=== PATIENT | female | born 1955 | race Caucasian/White ===

== ENCOUNTER 2017-10-12 13:56 | Outpatient (CLI) | payer MEDICARE | END 2017-10-12 13:57 | disposition home or self-care (01) | LOC: BICMAMMO 13:56 | PROVIDERS: ATTEND Internal Medicine Rheumatology | DX: M81.0 Age-related osteoporosis without current pathological fracture (principal) | CPT/HCPCS: 77080 ==

== ENCOUNTER 2018-01-27 10:31 | Outpatient (CLI) | payer MEDICARE ==
--- NOTE | 2018-02-03 12:10 | MMO ---
BILATERAL DIGITAL SCREENING MAMMOGRAMS: HISTORY: This 62-year-old female presents for digital screening mammography. COMPARISON: 02/01/13, 01/10/16. This patient's mammogram is interpreted with the assistance of computer-aided detection. FINDINGS: Scattered areas of fibroglandular density are noted bilaterally. There are typically benign calcific ations. No direct or indirect evidence of malignancy. IMPRESSION: BI-RADS category 2, benign findings. Continued routine screening. BIRADS 2: Benign Finding(s) Routine annual screening mammography (for women over age 40) POS: [facility]
== END 2018-01-27 10:32 | disposition home or self-care (01) ==
LOC: SCSMAMMO 10:31
PROVIDERS: ATTEND Physician Assistant
DX: Z12.31 Encounter for screening mammogram for malignant neoplasm of breast (principal)
CPT/HCPCS: 77067

== ENCOUNTER 2018-07-12 13:26 | Outpatient (CLI) | payer MEDICARE ==
--- NOTE | 2018-07-12 15:57 | MRI ---
BRAIN MRI WITH AND WITHOUT CONTRAST: 07/12/18 HISTORY: Parkinson's disease, normal pressure hydrocephalus, trauma, pain. TECHNIQUE: Multiplanar and multisequence MR imaging of the brain is obtained with and without contrast. FINDINGS: The axial gradient echo imaging demonstrates no evidence for intracranial hemorrhage. There is an are a of artifact limiting detailed assessment in the posterior temporoparietal region on the right. The diffusion weighted imaging demonstrates no evidence for acute infarction. The imaged paranasal sinuses and mastoid air cells are well aerated. Arterial flow voids at the axial level of the skull base appear unremarkable on the T2 weighted imaging. Regional bone marrow signal intensity within normal limits. No midline shift, mass effect or ventricu lar enlargement. There are a few patchy areas of increased T2 and FLAIR signal within the abimael which may signify small vessel disease. The postcontrast imaging demonstrates no abnormal enhancement within the brain paren chyma. IMPRESSION: No acute findings. POS: [facility]
== END 2018-07-12 13:27 | disposition home or self-care (01) ==
LOC: SCSMRI 13:26
PROVIDERS: ATTEND Psychiatry & Neurology Neurology with Special Qualifications in Child Neurology
DX: G20 Parkinson's disease (principal); R29.3 Abnormal posture; R32 Unspecified urinary incontinence
CPT/HCPCS: 70553; 82565

== ENCOUNTER 2018-09-27 14:43 | Outpatient (CLI) | payer MEDICARE ==
--- NOTE | 2018-09-27 15:47 | RAD ---
TWO VIEWS LUMBAR SPINE: HISTORY: Rheumatoid arthritis. Back pain. FINDINGS: There are 5 lumbar-type vertebral bodies. There is a likely acute mild compression fracture at L1. There is mild loss of the superior margin of the L3 vertebral body. Indeterminate compression deform ity is suspected. Probably vacuum disk phenomenon at the lumbosacral articulation. Indeterminate compression deformity at th eT11 level. IMPRESSION: Multiple compression deformities at T11, L1, and L3. Further evaluation with MRI or CT is recommende d. POS: [facility]
--- NOTE | 2018-09-27 16:12 | BD ---
DEXA BONE MINERAL DENSITOMETRY STUDY: 09/27/2018 HISTORY: Osteoporosis. Postmenopausal. FINDINGS LUMBAR SPINE BMD (g/cm2) T-SCORE Z-SCORE L1 0.971 -0.2 1.1 L2 0.71 -2.9 -1.4 L3 0.753 -3.0 -1.5 L4 0.685 -3.4 -1.8 L1-L4 0.777 -2.5 -1.0 LEFT FEMORAL NECK 0.523 -2.9 -1.6 TOTAL FEMUR 0.606 -2.8 -1.7 Prior study at [facility], on 10/12/2017, indicated bone mineral density of the lumbar spine, fr om L1 to L4, of 0.674 g per cm2, corresponding to a young adult T-score of -3.4, with bone mineral de nsity of the left femoral neck of 0.398 g per cm2, corresponding to a young adult T-score of -4.1. T here has been an interval decrease in bone mineral density compared to the prior exam. IMPRESSION: 1. Moderate osteopenia of the lumbar spine and left femoral neck, indicating a four-fold increased r isk for fracture. 2. This patient meets the WHO criteria for osteoporosis. POS: [facility]
== END 2018-09-27 14:44 | disposition home or self-care (01) ==
LOC: BICMAMMO 14:43
PROVIDERS: ATTEND Internal Medicine
DX: M81.0 Age-related osteoporosis without current pathological fracture (principal); M54.5 Low back pain; M06.9 Rheumatoid arthritis, unspecified; M43.8X4 Other specified deforming dorsopathies, thoracic region; M43.8X6 Other specified deforming dorsopathies, lumbar region; M85.89 Other specified disorders of bone density and structure, multiple sites
CPT/HCPCS: 72100; 77080

== ENCOUNTER 2018-10-20 13:27 | Outpatient (CLI) | payer MEDICARE ==
--- NOTE | 2018-10-20 16:53 | MRI ---
PELVIS MRI WITHOUT IV CONTRAST: 10/20/18 HISTORY: Sacral insufficiency fracture, M84.48XA - multiple falls since June. There is some heterogeneous signal involving the sacrum, coccyx and pelvis but no evidence for an ins ufficiency type stress fracture. There is one nodular focus measuring 0.8 cm in the left S1 vertebral body which is increased on T2 and STIR and decreased on T1, possibly an atypical hemangioma which I would favor over a metastatic focus although these cannot be definitively . No other bone le sions are demonstrated. No evidence of abnormal marrow signal. No evidence for soft tissue pelvic mas s or abnormal fluid collection. IMPRESSION: 0.8 cm diameter T1 hypointense, T2 and STIR hyperintense focus in the left S1 vertebral body, nonspec ific, this could certainly represent an atypical hemangioma. The possibility of a focal metastasis ca nnot be totally excluded but thought to be less likely. No evidence for insufficiency or stress type fractures of the sacrum, coccyx or pelvis. POS: [facility]
--- NOTE | 2018-10-20 17:01 | MRI ---
LUMBAR SPINE MRI WITHOUT IV CONTRAST 10/20/18 HISTORY: S32.000A - wedge compression fracture of the lumbar vertebral body. Multiple falls since June. FINDINGS: Multiplanar and multisequence MRI examination of the lumbar spine is performed. There is mild old com pression of T11 without abnormal marrow signal. No significant retropulsion. The L1 vertebral body s hows greater than 50% vertical height loss with some irregular T1 and T2 signal suggesting the possib ility of some acute on chronic change. There is moderate retropulsion superiorly with some resultant narrowing of the ventral thecal sac, although the thecal sac is very patulous at this level. There do es not appear to be any significant cord compression. There is some subtle T1 hypointensity and minim al STIR hyperintensity involving the posterior elements of L1 without a definitive acute fracture, bu t this may well represent some stress related changes. There are generalized disc desiccation changes and ligament and facet hypertrophic changes throughout the remainder of the lumbar spine. No evidenc e for significant focal disc herniation or canal or foraminal stenosis at L2-L3 or L3-L4. At L4-L5, t here is some mild disc bulging but again no canal or lateral recess or foraminal stenosis. At L5-S1, there is some disc bulging with mild left foraminal stenosis. IMPRESSION: Old mild compression of T11. More marked probably greater than 50% vertical height loss of the L1 betsy tebral body with some heterogeneous mixed T1 and T2 and STIR signal possibly representing some acute on chronic change with some superior retropulsion and some ventral thecal sac indention but no eviden ce of significant cord compression given the patulous size of the thecal sac. In addition, there is s ome minimal STIR hyperintensity involving the pedicles and posterior elements of L1 bilaterally witho ut a definitive defined fracture line possibly related to some stress related changes. Other findings as above. POS: [facility]
== END 2018-10-20 13:28 | disposition home or self-care (01) ==
LOC: SCSMRI 13:27
PROVIDERS: ATTEND Specialist
DX: M84.48XA Pathological fracture, other site, initial encounter for fracture (principal); S32.000A Wedge compression fracture of unspecified lumbar vertebra, initial encounter for closed fracture; D18.09 Hemangioma of other sites
CPT/HCPCS: 72148; 72195

== ENCOUNTER 2018-11-03 13:38 | Outpatient (CLI) | payer MEDICARE ==
--- NOTE | 2018-11-03 14:26 | RAD ---
LEFT HIP RADIOGRAPHS TWO VIEWS: Date: 11-03-18 Provided Clinical History: Left hip pain. FINDINGS: There is no evidence for fracture or other acute osseous abnormality. Alignment appears anatomic. Lef t hip joint space appears preserved. IMPRESSION: No evidence for an acute osseous abnormality or significant arthropathy involving the left hip. POS: [facility]
--- NOTE | 2018-11-03 15:46 | RAD ---
PELVIC RADIOGRAPH: 11/03/2018 PROVIDED CLINICAL HISTORY: Hip pain. FINDINGS: There is no evidence for fracture or other acute osseous abnormality. Alignment appears anatomic. J oint spaces appear preserved. No lytic or blastic lesions are seen. IMPRESSION: No evidence for an acute osseous abnormality or significant arthropathy. POS: [facility]
== END 2018-11-03 13:39 | disposition home or self-care (01) ==
LOC: RAD 13:38
PROVIDERS: ATTEND Nurse Practitioner Family
DX: M25.552 Pain in left hip (principal)
CPT/HCPCS: 72170

== ENCOUNTER 2019-10-17 14:17 | Outpatient (CLI) | payer MEDICARE ==
--- NOTE | 2019-10-17 15:24 | BD ---
DEXA bone density examination HISTORY: 64-year-old postmenopausal female for screening COMPARISON: None FINDINGS: L1--bone mineral density 0.797 g/sq cm; T score -1.8 L2--bone mineral density 0.762 g/sq cm; T score -2.4 L3--bone mineral density 0.775 g/sq cm; T score -2.8 L4--bone mineral density 0.695 g/sq cm; T score -3.3 Total L1-L4--bone mineral density 0.757 g/sq cm; T score -2.6 Left femoral neck--bone mineral density0.51 g/sq cm; T score -3.1 Total proximal left femur--bone mineral density 0.603 g/sq cm ; T score -2.8 There has been interval decrease in bone mineral density of the lumbar spine by 2.6% and decrease in bone mineral density of the left femoral neck by 0.5% when compared to prior study on 09/27/2018. IMPRESSION: 1. Marked osteopenia left femoral neck indicating 8 fold increased risk for fracture. 2. Moderate osteopenia lumbar spine indicating 4 fold increased risk for fracture.
== END 2019-10-17 14:18 | disposition home or self-care (01) ==
LOC: BICMAMMO 14:17
PROVIDERS: ATTEND Physician Assistant
DX: M81.0 Age-related osteoporosis without current pathological fracture (principal); M85.89 Other specified disorders of bone density and structure, multiple sites; Z79.899 Other long term (current) drug therapy
CPT/HCPCS: 77080

== ENCOUNTER 2020-05-13 20:37 | Inpatient (IN) | payer MEDICARE, OTHER ==
[2020-05-13 21:02] LABS: Base Excess-Venous 0.8 mmol/L (-2.0 to 3.0); Bicarbonate (HCO3v) 26.2 mmol/L (22.0-28.0); CO2 Tension (PvCO2) 44.2 mmHg (40.0-50.0); Chloride 107 mmol/L (98-107); Hemoglobin - Calc 10.5 g/dL (12.0-16.0); Potassium 3.3 mmol/L (3.5-5.1); Sodium 145 mmol/L (138-145); T. Carbon Dioxide 27.5 mmol/L (22.0-28.0)
[2020-05-13 21:10] LABS: #Lymphocytes 1.4 thou/uL (1.20-3.40); #Neutrophils 12.4 thou/uL (1.40-6.50); %Basophils 0.1 % (0.0-1.0); %Eosinophils 0.3 % (0.0-10.0); %Lymphocytes 9.6 % (21.0-51.0); %Monocytes 6.5 % (0.0-10.0); %Neutrophils 83.6 % (42.0-75.0); Hemoglobin 9.1 g/dL (12.0-16.0); Mean Corpuscular HGB CONC 31.9 g/dL (32.0-36.0); Mean Corpuscular Hemoglobin 29.2 pg (27.0-31.0); Mean Corpuscular Volume 91.4 fL (78.0-98.0); Mean Platelet Volume 8.5 fL (7.4-10.4); Platelet Count 260 thou/uL (130-400); RBC Distribution Width 12.8 % (11.5-14.5); Red Blood Cell (RBC) Count 3.12 mill/uL (4.20-5.40); White Blood Cell (WBC) Count 14.9 thou/uL (4.8-10.8)
[2020-05-13] MEDS ORDERED: Ondansetron PF 4 MG/2 ML Vial IVP PRN (23:18)
[2020-05-13] MEDS ORDERED: Ondansetron ODT 4 MG TAB SL PRN (23:18)
[2020-05-13] MEDS ORDERED: Acetaminophen 325 MG TAB PO PRN (23:19)
[2020-05-13] MEDS ORDERED: HYDROcodone/Acetaminophen 5/325 mg Tablet PO PRN (23:19)
[2020-05-13] MEDS ORDERED: Acetaminophen 650 MG Suppository PR PRN (23:19)
[2020-05-13 23:43] VITALS: BMI 17.9
--- NOTE | 2020-05-13 23:55 | PDOC.HHP ---
Hospitalist HPI - History of Present Illness dark stools History of Present Illness: Case of an 64y/o female with a pmhx of rheumatoid arthritis and advance parkinsons disease who comes to hospital due to dark stools and coffe ground hemesis. patient refers she was on her usual state of health until yesterday when she had some melena and coffe ground emesis. the patient was transferred from the [place] ER for GI bleed, elevated troponin, mild anemia. The patient reports she has been vomiting since yesterday with associated abdominal pain. The patient reports she has a history of chronic nausea and vomiting and normally vomits a few times per week but yesterday she started with coffe ground color which prompt her to get medical assistance. Patient denies any fever, body aches, chills, chest pain, shortness of breath, diarrhea, hematochezia, or other acute process. Hospitalist ROS - Review of Systems All other systems reviewed; all pertinent +/- noted in HPI/Subj Hospitalist History - Past Surgical History Past Surgical History: reports: Appendectomy, Cholecystectomy, Hysterectomy - Family History Family History: reports: cardiac disorder - Social History Smoking Status: Never smoker Alcohol: reports: None Drugs: reports: none - Exam General Appearance: NAD, awake alert General - other findings: frail appearing Eye: PERRL, anicteric sclera ENT: normocephalic atraumatic, no oropharyngeal lesions Neck: supple, symmetric, no JVD, no thyromegaly Heart: RRR, no murmur, no gallops, no rubs Respiratory: CTAB, no wheezes, no rales Gastrointestinal: soft, non-tender, non-distended, normal bowel sounds Extremities: no cyanosis, no clubbing, no edema Skin: normal turgor, no lesions, no rashes Neurological: cranial nerve grossly intact, normal sensation to touch, no focal deficits Musculoskeletal: normal tone, normal strength, no muscle wasting Psychiatric: normal affect, normal behavior, A&O x 3 Hospitalist Results - Labs Result Diagrams: 05/13/20 20:59 Lab results: WBC 14.9 thou/uL (4.8-10.8) H 05/13/20 20:59 Hgb 9.1 g/dL (12.0-16.0) L 05/13/20 20:59 Hct 28.5 % (36.0-47.0) L 05/13/20 20:59 MCV 91.4 fL (78.0-98.0) 05/13/20 20:59 Plt Count 260 thou/uL (130-400) 05/13/20 20:59 Neutrophils % 83.6 % (42.0-75.0) H 05/13/20 20:59 VBG pCO2 44.2 mmHg (40.0-50.0) 05/13/20 21:03 VBG pO2 34.0 mmHg (35.0-45.0) L 05/13/20 21:03 Hospitalist H&P A/P - Problem (1) GI bleeding Code(s): K92.2 - GASTROINTESTINAL HEMORRHAGE, UNSPECIFIED Status: Acute (2) Parkinson disease Code(s): G20 - PARKINSON'S DISEASE Status: Acute (3) Rheumatoid arthritis Code(s): M06.9 - RHEUMATOID ARTHRITIS, UNSPECIFIED Status: Acute - Plan Plan: 64y/o female with the stated pmhx who presents with gi bleeding gi bleed - npo - hg at 9.2 from 11.3, constance check q 4hrs - transfuse if below 7 or rapid decline - gi consult - npo - protonix drip - occult blood + rheumatoid arthritis / parkinson disease - continue home meds when able to tolare po
[2020-05-14] MEDS: Pantoprazole 80 MG, Admixture Fee 1 EACH in Sodium Chloride 0.9% 100 ML IVPB SCH ×2 (00:31→09:38)
[2020-05-14] MEDS: Sodium Chloride 0.9% 1,000 ML IV SCH ×2 (00:31→19:47)
[2020-05-14 01:15] LABS: Hemoglobin 9.4 g/dL (12.0-16.0)
[2020-05-14 02:21] LABS: Bilirubin Negative (Negative); Blood, Urine Negative (Negative); Clarity Clear (Clear); Glucose, Urine (Dipstick) Normal (Negative); Ketone, Urine Trace mg/dL (Negative); Leukocyte 75 Leu/uL (Negative); Nitrite Negative (Negative); Protein, Urine (Dipstick) 10 mg/dL (Neg-Trace); RBC/HPF 0-3 HPF (0-3); Specific Gravity, Urine 1.025 (1.002-1.036); Squamous Epithelial 0-3 HPF (0-3)
[2020-05-14 02:26] LABS: Bacteria/HPF Rare-Few HPF (None Seen)
[2020-05-14 06:01] LABS: Hemoglobin 8.6 g/dL (12.0-16.0)
[2020-05-14 06:24] LABS: ALT (SGPT) Less than 7 U/L (8-55); AST (SGOT) 12 U/L (5-34); Albumin 2.9 g/dL (3.4-4.8); Alkaline Phosphatase 56 U/L (40-110); Anion Gap 9 mmol/L (10-20); BUN (Urea Nitrogen) 29 mg/dL (9.8-20.1); Bilirubin, Total 0.5 mg/dL (0.2-1.2); Calc. Creatinine Clearance 74 mL/min (70-130); Carbon Dioxide 24 mmol/L (23-31); Chloride 112 mmol/L (98-107); Estimated GFR-MDRD Greater than 90; Globulin 1.8 g/dL (2.4-3.5); Glucose 81 mg/dL (80-115); Protein, Total 4.7 g/dL (6.0-8.3); Sodium 142 mmol/L (136-145)
[2020-05-14 09:04] LABS: Hemoglobin 8.8 g/dL (12.0-16.0)
--- NOTE | 2020-05-14 11:18 | CON ---
DATE OF CONSULTATION: 05/14/2020 REASON FOR CONSULTATION: Hematemesis, melena. CONSULTING PROVIDER: Armando Ramirez MD. HISTORY OF PRESENT ILLNESS: The patient is a 64-year-old female with past medical history of rheumatoid arthritis, advanced Parkinson disease, chronic nausea and vomiting, and chronic anemia, presenting with complaints of hematemesis and melena. She states that approximately 1 month ago she had the acute onset of hematemesis, characterized as coffee-ground type emesis, that she considered a small amount with no recurrence and decided not to seek healthcare assistance. However, she did not have any recurrence until yesterday afternoon when she had multiple episodes (approximately 2) of coffee-ground emesis, that was associated with dark black semi-solid stools x2 with the appearance of both black emesis and black stools, that then prompted her to seek healthcare assistance at the [facility] ER. While in the ER, she was noted to have a decreased hemoglobin and hematocrit when compared to baseline in addition to an elevated BUN to creatinine ratio, and was ultimately admitted to the hospital for further evaluation. Since she has been admitted to the hospital, she has not had any further episodes of vomiting nor has she had any further episodes of melenic type stools. Upon further talking with the patient, she states that she has had chronic nausea and vomiting that has been present for years and usually occurs at least once every day or once every other day. It will usually occur within 2 hours after eating and usually consisted primarily of the ingested food. She does try to maintain an upright posture for at least 1 to 2 hours after she eats, but after that does go lay down for prolonged periods of time during the day. She does endorse associated regurgitation, acid taste in her mouth, midepigastric pain that only occurs during vomiting and resolves completely after vomiting as well as normally having constipation. Otherwise, she denies any substernal pyrosis/heartburn, fevers, chills, hematochezia, dysphagia, or odynophagia. Of note, the patient did undergo colonoscopy on 02/12/2018 with removal of a 4-mm ascending colon tubular adenoma and mild diverticulosis, but no other abnormality seen. REVIEW OF SYSTEMS: A 10-category review of systems was obtained with all responses negative except for the pertinent positives as listed in HPI. PAST MEDICAL HISTORY: As per HPI. PAST SURGICAL HISTORY: 1. Appendectomy. 2. Cholecystectomy. 3. Hysterectomy. FAMILY HISTORY: Denies any GI malignancies. SOCIAL HISTORY: Denies any tobacco, alcohol, or illicit drug use. OUTPATIENT MEDICATIONS: Reviewed. ALLERGIES: SULFA. PHYSICAL EXAMINATION: VITAL SIGNS: Temperature 97.8, pulse 84, blood pressure 95/54, respiratory rate 18, and saturating 96% on room air. GENERAL: The patient was lying in bed, in no acute distress. Alert and oriented x4, although somewhat somnolent and hard to wake up initially. HEENT: Normocephalic and atraumatic. NECK: Supple. No JVD or scleral icterus noted. CARDIOVASCULAR: Regular rate and rhythm. A 3/6 systolic murmur was best heard at the right upper sternal border, but no other murmurs, gallops, or rubs. RESPIRATORY: Clear to auscultation bilaterally. ABDOMEN: Normoactive bowel sounds. Soft, nontender, and nondistended. EXTREMITIES: No cyanosis, clubbing, or edema. LABORATORY DATA: CBC with a white blood cell count of 14.9, hemoglobin 8.6, hematocrit 28.5, and platelets 260. Chemistry with a sodium of 142, potassium 3, chloride 112, CO2 of 24, BUN 29, creatinine 0.61, and glucose 81. AST 12, ALT less than 7, alkaline phosphatase 56, total bilirubin 0.5, and albumin 2.9. Urinalysis consistent with urinary tract infection. IMAGING DATA: No current GI imaging is available for review. ASSESSMENT AND PLAN: The patient is a 64-year-old female with past medical history of rheumatoid arthritis, chronic nausea and vomiting, and advanced Parkinson disease, presenting with complaints of hematemesis and melena, concerning for an upper gastrointestinal bleed. Upper GI bleeding: The patient is presenting with a longstanding history of chronic nausea and vomiting that she has had for years and characterized as having approximately one episode of emesis every day or every other day. However, approximately 1 month ago, she had occurrence of a small amount of hematemesis, characterized as coffee-ground emesis at that time. The amount was small, so she did not seek healthcare assistance. However, yesterday, the patient had 2 episodes of coffee-ground emesis as well as what appears to be melenic type stools, concerning for upper gastrointestinal bleeding. When looking at her hemoglobin and hematocrit, it is decreased when compared to baseline and she is also presenting with an elevated BUN to creatinine ratio, also concerning for an upper gastrointestinal bleed. At this time, the etiology is unknown, but the differential could include gastroesophageal reflux disease, especially given her sedentary type states and lying supine for majority of the day, medication induced (especially with prednisone, SSRI, and carbidopa/levodopa on board), Yael-Reno tear given her chronic history of nausea and vomiting, arteriovenous malformation, Dieulafoy lesion, gastritis, duodenitis, peptic ulcer disease, and/or gastrointestinal neoplasm (less likely). RECOMMENDATIONS: 1. Would continue to trend her hemoglobin and hematocrit and transfuse as necessary to maintain the hemoglobin and hematocrit of 7/21. 2. Continue to monitor clinically for signs of active GI bleeding. 3. Would continue to avoid any anticoagulation for the time being until upper endoscopy. 4. Continue the patient on PPI drip until upper endoscopy. 5. Would avoid any NSAIDs or pain control. 6. Would continue n.p.o. status again in anticipation of upper endoscopy. 7. We will plan for upper endoscopy later today with further recommendations to follow. Job ID: [id number]
[2020-05-14] MEDS ORDERED: PHENYLEPHRINE-NS 100 MCG/ML 10 ML SYRINGE ONE (11:37)
[2020-05-14] MEDS ORDERED: PROPOFOL 200 MG/20 ML VIAL ONE (11:37)
[2020-05-14] MEDS ORDERED: Lidocaine 1% PF 5 ML VIAL ONE (11:37)
[2020-05-14 12:02] LABS: SARS-CoV-2 MS2 Positive; SARS-CoV-2 N Gene Negative; SARS-CoV-2 S Gene Negative; SARS-CoV-2 by NAA Not Detected (NotDetected); SARS-CoV-2 orf1ab Negative
[2020-05-14] MEDS ORDERED: Promethazine HCl 25 MG/ML VIAL IM PRN (15:18)
[2020-05-14] MEDS ORDERED: Promethazine HCl 25 MG/ML VIAL SLOW IVP PRN (15:18)
[2020-05-14] MEDS ORDERED: Ondansetron HCl/PF 4 MG/2 ML Vial IVP PRN (15:18)
--- NOTE | 2020-05-14 17:34 | PDOC.HOSPP ---
- Subjective Subjective: pt was seen and examined. GI plans for upper endoscopy this PM. no further bleeding noted per nursing staff. Hb stable - Objective Vital Signs & Weight: Vital Signs (12 hours) Temp Pulse Resp BP Pulse Ox 05/14/20 11:48 97.9 F 92 18 106/58 L 93 L 05/14/20 08:00 96 Weight Admit Weight 107 lb 12.8 oz Weight 107 lb 12.897 oz I&O: 05/13/20 05/14/20 05/15/20 06:59 06:59 06:59 Intake Total 400 Output Total 500 Balance -100 Result Diagrams: 05/14/20 08:39 05/14/20 05:37 Hospitalist ROS - Medication Medications: Active Medications Generic Name Dose Route Start Last Admin Trade Name Freq PRN Reason Stop Dose Admin Sodium Chloride 1,000 mls @ 50 mls/hr 05/13/20 23:30 05/14/20 00:31 Normal Saline 0.9% IV 1,000 mls .Q20H RAINA Administration Hosp A/P - Plan - Exam General Appearance: NAD, awake alert General - other findings: frail appearing Eye: PERRL, anicteric sclera ENT: normocephalic atraumatic, no oropharyngeal lesions Neck: supple, symmetric, no JVD, no thyromegaly Heart: RRR, no murmur, no gallops, no rubs Respiratory: CTAB, no wheezes, no rales Gastrointestinal: soft, non-tender, non-distended, normal bowel sounds Extremities: no cyanosis, no clubbing, no edema Skin: normal turgor, no lesions, no rashes Neurological: cranial nerve grossly intact, normal sensation to touch, no focal deficits Musculoskeletal: normal tone, normal strength, no muscle wasting Psychiatric: normal affect, normal behavior, A&O x 3 Assessment and Plan: #Upper GI bleeding #Chronic Anemia with superimposed acute blood anemia #RA #Advanced Parkinson's dementia 05/14/20 Cont supportive cares. Cont PPI. Appreciate GI input Hb stable, low threshold for blood transfusion at this time. Avoid NSAIDs Rpt labs in AM
[2020-05-14] MEDS: Pantoprazole 40 MG VIAL IVP SCH (19:45)
--- NOTE | 2020-05-14 22:34 | OP ---
DATE OF PROCEDURE: 05/14/2020 PROCEDURE PERFORMED: EGD (diagnostic). INDICATION FOR PROCEDURE: Hematemesis and anemia. DESCRIPTION OF PROCEDURE: After the risks and benefits of the procedure were explained to the patient including risks of bleeding, infection, perforation, reactions to anesthesia, aspiration, and/or pain, informed consent was obtained. The patient was then taken to the endoscopy suite, where she was maneuvered into the left lateral decubitus position, followed by introduction of deep sedation via propofol and anesthesia support. Once the patient was adequately sedated, the standard gastroscope was introduced into the mouth with intubation of the esophagus, stomach, and the proximal small intestines with the findings listed below. The patient tolerated the procedure well with no immediate perioperative complications. Upon conclusion of the procedure, all equipment was removed from the patient and she was transferred to PACU in satisfactory condition. FINDINGS: Esophagus: Normal-appearing mucosa was seen in the proximal, mid, and distal esophagus; however, at the gastroesophageal junction, there was [id number] narrowing of the esophageal lumen, but it was easily traversed with the standard gastroscope. Also at the gastroesophageal junction, there were multiple erosions as well as ulcerations with mild oozing of blood in this particular region extending greater than 5 mm in length and in some areas confluent with adjacent esophageal folds, but occupying approximately 50% of the esophageal lumen. Along the one wall of the distal esophagus, there was a larger ulceration that measured approximately 4 to 5 mm in size that did exhibit oozing of blood, but did not have any high-risk stigmata of bleeding associated with it. The diaphragmatic pinch was seen at 38 cm while the gastroesophageal junction was well seen at 31 cm denoting a 7 to 8 cm hiatal hernia. There was no evidence of mass lesions in this region. Stomach: Normal-appearing mucosa was seen in the gastric cardia, fundus, body, greater curvature, antrum, and incisura. On gastric retroflexion, a very large hiatal hernia was seen without any evidence of Milad's erosions/ulcerations. There was no evidence of erosions, ulcerations, mass, lesions, or active/recent bleeding. Duodenum: Normal-appearing mucosa was seen in the duodenal bulb and second portion of the duodenum. There was no evidence of erosions, ulcerations, mass, lesions, or active/recent bleeding. IMPRESSION: 1. LA grade B/C reflux-mediated erosive esophagitis (most likely source of the patient's recent hematemesis). 2. 7 to 8 cm hiatal hernia (likely contributing to LA grade B/C reflux mediated erosive esophagitis). 3. [id number]-xf-[id number] narrowing/stricture of the distal esophagus that was not dilated today due to already oozing of blood in this region and no complaints of dysphagia on interview. RECOMMENDATIONS: 1. We would place the patient on pantoprazole 40 mg IV b.i.d. with discontinuation of the IV infusion, would plan to discharge the patient on pantoprazole 40 mg oral twice daily until seen in the GI clinic. 2. If the patient is going to be on medications that can induce GI bleeding (Lialda, escitalopram, and prednisone). The patient will need to be on a PPI daily for gastric protective purposes. 3. We would continue to trend the patient's H and H and transfuse as necessary to maintain an H and H of 07/21. 4. Continue to monitor clinically for signs of active GI bleeding. 5. We would adhere to strict anti-reflux precautions while the patient is in the hospital (for example, maintaining an upright posture throughout the greater portion of the day, maintaining an upright posture after meals and within 2 to 3 hours of bedtime, avoidance of trigger foods). 6. We would consider consultation of General Surgery for evaluation and correction of the large hiatal hernia likely contributing to her esophageal reflux/erosive esophagitis. 7. We would have the patient follow up in the GI Clinic in 3 weeks for further management of this condition. 8. We will sign off at this time. Please call with any questions. Job ID: [id number]
[2020-05-15 05:21] LABS: #Eosinphils 0.1 thou/uL (0.0-0.7); #Lymphocytes 1.3 thou/uL (1.20-3.40); #Monocytes 0.8 thou/uL (0.11-0.59); #Neutrophils 7.4 thou/uL (1.40-6.50); %Basophils 0.5 % (0.0-1.0); %Lymphocytes 13.6 % (21.0-51.0); Hemoglobin 8.9 g/dL (12.0-16.0); Mean Corpuscular HGB CONC 31.4 g/dL (32.0-36.0); Mean Corpuscular Hemoglobin 28.4 pg (27.0-31.0); Mean Corpuscular Volume 90.5 fL (78.0-98.0); Mean Platelet Volume 8.1 fL (7.4-10.4); Platelet Count 255 thou/uL (130-400); RBC Distribution Width 12.5 % (11.5-14.5); Red Blood Cell (RBC) Count 3.13 mill/uL (4.20-5.40); White Blood Cell (WBC) Count 9.6 thou/uL (4.8-10.8)
[2020-05-15 05:40] LABS: Anion Gap 13 mmol/L (10-20); BUN (Urea Nitrogen) 15 mg/dL (9.8-20.1); Calc. Creatinine Clearance 85 mL/min (70-130); Calcium 7.2 mg/dL (7.8-10.44); Carbon Dioxide 20 mmol/L (23-31); Chloride 113 mmol/L (98-107); Estimated GFR-MDRD Greater than 90; Glucose 67 mg/dL (80-115); Sodium 143 mmol/L (136-145)
[2020-05-15] MEDS ORDERED: Potassium Chloride 20 MEQ TAB PO SCH (08:00)
[2020-05-15] MEDS: Pantoprazole 40 MG VIAL IVP SCH (09:25)
[2020-05-15] MEDS ORDERED: Chloraseptic Spray 180 ml Bottle PO PRN (11:45)
[2020-05-15] MEDS: Sodium Chloride 0.9% 1,000 ML IV SCH (15:32)
--- NOTE | 2020-05-15 16:24 | PDOC.HOSPP ---
- Subjective Subjective: no further bleeding noted. tolerating full liquid diet. - Objective Vital Signs & Weight: Vital Signs (12 hours) Temp Pulse Resp BP Pulse Ox 05/15/20 12:29 98.6 F 88 18 124/69 95 05/15/20 09:05 98.7 F 95 18 128/68 96 Weight Admit Weight 107 lb 12.8 oz Weight 107 lb 12.897 oz I&O: 05/14/20 05/15/20 05/16/20 06:59 06:59 06:59 Intake Total 400 1850 Output Total 500 1300 Balance -100 550 Result Diagrams: 05/15/20 05:04 05/15/20 05:04 Hospitalist ROS - Medication Medications: Active Medications Generic Name Dose Route Start Last Admin Trade Name Freq PRN Reason Stop Dose Admin Acetaminophen 650 mg 05/13/20 23:19 05/15/20 09:24 Tylenol PO 650 mg Q4H PRN Administration Headache/Fever/Mild Pain (1-3) Sodium Chloride 1,000 mls @ 50 mls/hr 05/13/20 23:30 05/15/20 15:32 Normal Saline 0.9% IV 1,000 mls .Q20H RAINA Administration [Rytary Er] 61.25- 2 capsule 05/15/20 13:00 05/15/20 16:12 245 PO 2 capsule QID RAINA Administration [Rytary Er] 36.25- 1 capsule 05/15/20 13:00 05/15/20 16:12 145 Mg Cap PO 1 capsule QID RAINA Administration Phenol 0 ml 05/15/20 11:45 05/15/20 16:12 Chloraseptic Crawford 180 Ml Bot PO 1 spray Q1H PRN Administration SORE THROAT Hosp A/P - Plan - Exam General Appearance: NAD, awake alert General - other findings: frail appearing Eye: PERRL, anicteric sclera ENT: normocephalic atraumatic, no oropharyngeal lesions Neck: supple, symmetric, no JVD, no thyromegaly Heart: RRR, no murmur, no gallops, no rubs Respiratory: CTAB, no wheezes, no rales Gastrointestinal: soft, non-tender, non-distended, normal bowel sounds Extremities: no cyanosis, no clubbing, no edema Skin: normal turgor, no lesions, no rashes Neurological: cranial nerve grossly intact, normal sensation to touch, no focal deficits Musculoskeletal: normal tone, normal strength, no muscle wasting Psychiatric: normal affect, normal behavior, A&O x 3 Assessment and Plan: #Upper GI bleeding - secondary to erosive esophagitis #Chronic Anemia with superimposed acute blood anemia #RA #Advanced Parkinson's disease #Large HH 05/15/20 Hb stable. she is tolerating Full liquid diet. no further bleeding noted. I have updated her daughter, Verito on the phone GI is following. Rpt CBC in AM. transition to oral PPI 05/14/20 Cont supportive cares. Cont PPI. Appreciate GI input Hb stable, low threshold for blood transfusion at this time. Avoid NSAIDs Rpt labs in AM
[2020-05-15] MEDS: Amantadine HCl 100 mg Capsule PO SCH (20:48)
[2020-05-16 06:28] LABS: #Eosinphils 0.1 thou/uL (0.0-0.7); #Lymphocytes 1.1 thou/uL (1.20-3.40); #Monocytes 0.6 thou/uL (0.11-0.59); #Neutrophils 6.3 thou/uL (1.40-6.50); %Basophils 0.3 % (0.0-1.0); %Eosinophils 1.5 % (0.0-10.0); %Monocytes 6.7 % (0.0-10.0); %Neutrophils 77.5 % (42.0-75.0); Hemoglobin 9.2 g/dL (12.0-16.0); Mean Corpuscular HGB CONC 32.2 g/dL (32.0-36.0); Mean Corpuscular Hemoglobin 29.2 pg (27.0-31.0); Mean Corpuscular Volume 90.5 fL (78.0-98.0); Mean Platelet Volume 8.6 fL (7.4-10.4); Platelet Count 243 thou/uL (130-400); RBC Distribution Width 12.7 % (11.5-14.5); Red Blood Cell (RBC) Count 3.15 mill/uL (4.20-5.40); White Blood Cell (WBC) Count 8.2 thou/uL (4.8-10.8)
[2020-05-16 06:56] LABS: Anion Gap 11 mmol/L (10-20); BUN (Urea Nitrogen) 7 mg/dL (9.8-20.1); Calc. Creatinine Clearance 80 mL/min (70-130); Calcium 7.3 mg/dL (7.8-10.44); Carbon Dioxide 22 mmol/L (23-31); Chloride 113 mmol/L (98-107); Estimated GFR-MDRD Greater than 90; Glucose 81 mg/dL (80-115); Potassium 3.5 mmol/L (3.5-5.1); Sodium 142 mmol/L (136-145)
[2020-05-16] MEDS ORDERED: Bupropion 150 MG XL TAB PO SCH (09:00)
[2020-05-16] MEDS ORDERED: IRON CARBONYL 65 MG PO SCH (09:00)
[2020-05-16] MEDS ORDERED: Escitalopram Oxalate 20 mg Tablet PO SCH (09:00)
[2020-05-16] MEDS: Amantadine HCl 100 mg Capsule PO SCH (09:12)
[2020-05-16 11:39] VITALS: TEMP 98.1
[2020-05-16] MEDS: Sodium Chloride 0.9% 1,000 ML IV SCH (13:45)
--- NOTE | 2020-05-16 16:31 | PQF ---
CLINICAL DOCUMENTATION CLARIFICATION FORM: Dear Dr. KEY GILES Date: 05-16-20 Please exercise your independent, professional judgment in responding to the clarification form. Clinical indicators are provided on the bottom of this form for your review. Please check appropriate box(es): [ ] Protein Calorie Malnutrition: [ ] Mild [ X] Moderate [ ] Severe [ ] Other Malnutrition (please specify) __ [ ] Other diagnosis [ ] Unable to determine In addition, please specify: Present on Admission (POA): [X ] Yes [ ] No [ ] Unable to determine For continuity of documentation, please document condition throughout progress notes and discharge summary. Thank You. To be completed by CDI/Coding staff for physician review: CLINICAL INDICATORS - SIGNS / SYMPTOMS / LABS / RESULTS AND LOCATION IN MR: [employer] CONSULT 05-16-20: weighed 115# 2-3 weeks ago. She reported some nausea yesterday which has resolved, HX OF RA, advanced Parkinsons, chronic N/V , mild temporalis muscle wasting, moderate buccal fat pad wasting, mild pectoralis muscle wasting, 6.3% weight loss x 2-3 weeks RISK FACTORS / RESULTS AND LOCATION IN MR: [employer] CONSULT 05-16-20: weighed 115# 2-3 weeks ago. She reported some nausea yesterday which has resolved, HX OF RA, advanced Parkinsons, chronic N/V , TREATMENT / RESULTS AND LOCATION IN MR: [employer] CONSULT 05-16-20: 1. Continue Full Liquid diet. When medically appropriate, ADAT to Regular diet. 2. Recommend Ensure Enlive BID to promote adequate intake. 3. Provide anti-emetic PRN. 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 Moderate Malnutrition (in chronic illness) Energy Intake: <75% of estimated energy requirement for =1 month Weight Loss: 5%/1 month; 7.5%/3 months; 10%/6 months; 20%/1 year Other: mild body fat loss; mild muscle mass loss; mild fluid accumulation Severe Malnutrition (in chronic illness) Energy Intake: =75% of estimated energy requirement for =1 month Weight Loss: >5%/1 month; >7.5%/3 months; >10%/6 months; >20%/1 year Other: severe body fat loss; severe muscle mass loss; severe fluid accumulation; 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
--- NOTE | 2020-05-16 18:00 | PQF ---
CLINICAL DOCUMENTATION CLARIFICATION FORM: Dear Dr. KEY GILES Date: 05-16-20 Please exercise your independent, professional judgment in responding to the clarification form. Clinical indicators are provided on the bottom of this form for your review Please check appropriate box(es): [X ] Acute blood loss anemia [ ] Post-op anemia related to acute blood loss [ ] Chronic Anemia: [ ] Blood loss [ ] Hemolytic [ ] Simple [ ] Due to Vitamin B12 Deficiency [ ] Other [ ] Anemia of Chronic Disease (please specify) [ ] Other diagnosis [ ] Unable to determine In addition, please specify: Present on Admission (POA): [ X] Yes [ ] No [ ] Unable to determine For continuity of documentation, please document condition throughout progress notes and discharge summary. Thank You. To be completed by CDI/Coding staff for physician review: CLINICAL INDICATORS - SIGNS / SYMPTOMS / LABS / RESULTS AND LOCATION IN EMR: PROGRESS NOTE KEY GILES 05-14-20: UPPER GI BLEEDING, CHRONIC ANEMIA WITH SUPERIMPOSED ACUTE BLOOD ANEMIA OP NOTE DR. SANTAMARIA 05-14-20: EROSIVE ESOPHAGITIS (MOST LIKELY SOURCE OF THE PATIENTS RECENT HEMATEMESIS), HIATAL HERNIA, MILD TO MODERATE STRICTURE OF THE DISTAL ESOPHAGUS RISK FACTORS / RESULTS AND LOCATION IN EMR: OP NOTE DR. SANTAMARIA 05-14-20: EGD DIAGNOSTIC PROGRESS NOTE KEY GILES 05-14-20: UPPER GI BLEEDING, CHRONIC ANEMIA WITH SUPERIMPOSED ACUTE BLOOD ANEMIA TREATMENTS / RESULTS AND LOCATION IN EMR: GI CONSULT 05-14-20 EGD 05-14-[address] GILES 05-14-20: CONT PPI, GI INPUT, AVOID NSAIDS, RPT LABS IN AM CDS Signature: Rossy Danielle Phone #: [phone] Date/Time: 05-16-20 This is a permanent part of the Medical Record [facility]
[2020-05-16 18:15] VITALS: BP 124/73
--- NOTE | 2020-05-17 06:54 | DIS ---
DATE OF ADMISSION: 05/13/2020 DATE OF DISCHARGE: 05/16/2020 DISCHARGE DIAGNOSES: 1. Upper gastrointestinal bleeding secondary to erosive esophagitis. 2. Chronic anemia with superimposed acute blood loss anemia-no transfusion is required. 3. Large hiatal hernia. 4. History of rheumatoid arthritis. 5. Parkinson disease. CONSULTATIONS: GI, Dr. Stauffer. PROCEDURES: EGD shows grade B/C reflux mediated erosive esophagitis, more likely the source of the patient's recent hematemesis, 7 to 8 cm hiatal hernia, likely contributing to the LA grade B/C reflux mediated erosive esophagitis, mild to moderate narrowing/strictures of the distal esophagus that was not dilated today due to already oozing of blood in this region and no complaint of dysphagia. LABORATORY DATA AND IMAGING STUDY: WBC 8.2, hemoglobin 9.2, hematocrit 28.5, platelets 243. Chemistry; sodium 142, potassium 3.5, chloride is 113, carbon dioxide 22, BUN 7, creatinine 0.56, albumin 2.9, AST and ALT within normal limits. HISTORY OF PRESENT ILLNESS AND BRIEF HOSPITAL COURSE: This is a very pleasant 64-year-old female with significant past medical history of rheumatoid arthritis, on prednisone; advanced Parkinson disease; chronic nausea and vomiting; chronic anemia, who presented to the ED with complaining of black tarry stool and coffee-grounds emesis. Symptoms started about intermittently about a month ago. Progressively worsened. For that reason, she came to the ED for further evaluation. Her hemoglobin on admissions was 9.1. The patient was subsequently admitted to hospitalist service for further workup. GI was consulted. The patient was seen by Dr. Stauffer and subsequently underwent EGD. Finding noted above. Her hemoglobin went down to 8.6, no blood transfusion is needed, at the time of discharge swung up to 9.2. No further symptom or evidence of active bleeding noted. I have discussed with GI. The patient is stable to discharge home with Protonix b.i.d., she will follow up with GI in 2 weeks. At that time, Dr. Stauffer will consider referring her to General Surgery for evaluation of her large hiatal hernia. I also updated her daughters, Verito is on the phone with regard to the plan of care. DISPOSITION: The patient is stable to discharge home with family. ACTIVITY: As tolerated. DIET: Regular diet as tolerated. FOLLOWUP CARE: 1. The patient to follow up with GI in 1 to 2 weeks, and at that time, Dr. Stauffer will refer to Surgery for further evaluation of her large hiatal hernia. 2. The patient to follow with her PCP in 1 to 2 weeks and repeat CBC to make sure her hemoglobin remains stable. PHYSICAL EXAMINATION: VITAL SIGNS: Temperature is 98.7, pulse 93, respiratory rate 16, O2 saturation 94% on room air, and blood pressure 114/67. GENERAL APPEARANCE: The patient is alert and oriented x3, not in acute distress. HEENT: Normocephalic, atraumatic. Mucous membranes moist. NECK: Supple. No lymphadenopathy. No JVD. CARDIOVASCULAR: Regular rate and rhythm. S1 and S2 noted. No murmur. PULMONOLOGY: Clear to auscultation bilaterally. ABDOMEN: Soft, nontender, nondistended. Positive bowel sounds. EXTREMITIES: No edema. NEUROLOGY: Cranial nerves II through XII grossly intact. PSYCHIATRIC: The patient is alert and oriented x3 with normal affect. DISCHARGE MEDICATIONS: 1. Protonix 40 mg b.i.d. 2. Amantadine 100 mg b.i.d. 3. Wellbutrin XL 150 mg q.a.m. 4. Carbidopa/levodopa 36.25 mg/145 mg capsule one capsule q.i.d. 5. Celexa 20 mg p.o. daily. 6. Folic acid 1 mg p.o. daily. 7. Iron supplement 65 mg p.o. daily. 8. Methotrexate 2.5 mg tablets 6 tablets q.7 days. 9. Myrbetriq 25 mg p.o. daily. 10. Prednisone 20 mg p.o. daily. Thank you for allowing us to participate in this patient's care. Job ID: [id number] [facility]
== END 2020-05-16 16:14 | disposition home or self-care (01) | DRG 381 ==
LOC: ERS 20:37 → T4-A 22:11
PROVIDERS: ADMIT Internal Medicine; ATTEND Internal Medicine
PROC: 0DJ08ZZ Inspection of Upper Intestinal Tract, Via Natural or Artificial Opening Endoscopic (ICD-10-PCS; principal; 2020-05-14)
DX: K22.11 Ulcer of esophagus with bleeding (principal); D62 Acute posthemorrhagic anemia; E44.0 Moderate protein-calorie malnutrition; Z68.1 Body mass index [BMI] 19.9 or less, adult; Z20.828 Contact with and (suspected) exposure to other viral communicable diseases; K21.0 Gastro-esophageal reflux disease with esophagitis; K22.2 Esophageal obstruction; I95.9 Hypotension, unspecified; M06.9 Rheumatoid arthritis, unspecified; G20 Parkinson's disease; K44.9 Diaphragmatic hernia without obstruction or gangrene; Z90.49 Acquired absence of other specified parts of digestive tract; Z90.710 Acquired absence of both cervix and uterus; Z88.2 Allergy status to sulfonamides; Z79.52 Long term (current) use of systemic steroids; Z79.899 Other long term (current) drug therapy
CPT/HCPCS: 36415; 80048; 80053; 81001; 82330; 82803; 85018; 85025; 86850; 86900; 86901; 87635; 96360; 96361; C9113; J2704; J3490; U0003

== ENCOUNTER 2020-06-24 13:02 | Inpatient (IN) | payer MEDICARE, OTHER ==
[2020-06-24] MEDS ORDERED: Ondansetron PF 4 MG/2 ML Vial ONE (13:49)
[2020-06-24 14:03] LABS: #Eosinphils 0.1 thou/uL (0.0-0.7); #Lymphocytes 0.3 thou/uL (1.20-3.40); #Monocytes 1.3 thou/uL (0.11-0.59); #Neutrophils 17.5 thou/uL (1.40-6.50); %Basophils 0.1 % (0.0-1.0); %Eosinophils 0.3 % (0.0-10.0); %Lymphocytes 1.7 % (21.0-51.0); %Monocytes 6.6 % (0.0-10.0); %Neutrophils 91.4 % (42.0-75.0); Hemoglobin 14.4 g/dL (12.0-16.0); Mean Corpuscular HGB CONC 31.8 g/dL (32.0-36.0); Mean Corpuscular Hemoglobin 28.4 pg (27.0-31.0); Mean Corpuscular Volume 89.4 fL (78.0-98.0); Mean Platelet Volume 9.1 fL (7.4-10.4); Platelet Count 299 thou/uL (130-400); RBC Distribution Width 12.7 % (11.5-14.5); Red Blood Cell (RBC) Count 5.05 mill/uL (4.20-5.40); White Blood Cell (WBC) Count 19.1 thou/uL (4.8-10.8)
[2020-06-24 14:19] LABS: ALT (SGPT) Less than 7 U/L (8-55); AST (SGOT) 14 U/L (5-34); Albumin 4.3 g/dL (3.4-4.8); Alkaline Phosphatase 82 U/L (40-110); Anion Gap 19 mmol/L (10-20); BUN (Urea Nitrogen) 38 mg/dL (9.8-20.1); Bilirubin, Total 0.7 mg/dL (0.2-1.2); Calc. Creatinine Clearance 0 mL/min (70-130); Calcium 9.7 mg/dL (7.8-10.44); Carbon Dioxide 27 mmol/L (23-31); Chloride 102 mmol/L (98-107); Estimated GFR-MDRD 59; Globulin 2.7 g/dL (2.4-3.5); Glucose 138 mg/dL (80-115); Potassium 3.6 mmol/L (3.5-5.1); Sodium 144 mmol/L (136-145)
[2020-06-24] MEDS ORDERED: Pantoprazole 40 MG VIAL ONE (14:29)
[2020-06-24 14:42] LABS: CKMB 3.7 ng/mL (0-6.6)
[2020-06-24] MEDS ORDERED: Pantoprazole 80 MG, Admixture Fee 1 EACH in Sodium Chloride 0.9% 100 ML IVPB SCH ×2 (14:45→21:45)
[2020-06-24] MEDS ORDERED: cefTRIAXone\\ROCEPHIN 2 GM VIAL ONE (15:26)
--- NOTE | 2020-06-24 15:32 | PDOC.HHP ---
Hospitalist HPI - History of Present Illness Nausea and vomiting, GI bleed History of Present Illness: 64-year-old female who has underlying Parkinson's disease, she has very large hiatal hernia as well as reflux esophagitis, she also has underlying rheumatoid arthritis on immunosuppressive therapy. Patient was in our hospital about a month ago at that time she had exactly similar presentation, she had upper endoscopy at that time which showed large hiatal hernia and reflux esophagitis. Patient was treated with IV Protonix drip and subsequently changed to PPI twice daily. Patient also visited gastroenterology clinic 2 weeks ago at that time patient was doing much better. Again for last 2 to 3 days patient has increasing nausea vomiting. She was not able to hold any oral medication. She did not sleep the entire night. This morning patient was not able to hold any liquid as well as any medication and that is why her brought her to emergency room. In the emergency room patient was normotensive but she was tachycardic and tachypneic. She was also completely altered and lethargic when I saw. ER physician already spoke with the gastroenterology. In the emergency room patient is given Rocephin, Protonix drip and IV fluid. We are going to admit this patient hospital for further evaluation and treatment. ED Course: Patient has received Rocephin, Protonix drip and IV fluid Hospitalist ROS - Review of Systems ROS unobtainable: due to mental status - Medication Medications: Medication Instructions Recorded Confirmed Type Amantadine HCl [Amantadine] 100 mg PO BID 05/13/20 05/14/20 History BuPROPion XL [Wellbutrin XL] 150 mg PO QAM 05/13/20 05/14/20 History Carbidopa/Levodopa [Rytary ER] 1 capsule PO QID 05/13/20 05/14/20 History Carbidopa/Levodopa [Rytary ER] 2 capsule PO QID 05/13/20 05/14/20 History Escitalopram Oxalate 20 mg PO DAILY 05/13/20 05/14/20 History Folic Acid 1 mg PO DAILY 05/13/20 05/14/20 History Methotrexate Sodium 6 tab PO Q7D 05/13/20 05/14/20 History Mirabegron [Myrbetriq] 25 mg PO DAILY 05/13/20 05/14/20 History predniSONE 20 mg PO QAM-WM PRN 05/13/20 05/14/20 History Iron,Carbonyl [Iron Chews] 65 mg PO DAILY 05/14/20 05/14/20 History Pantoprazole [Protonix] 40 mg PO BID #60 tab 05/16/20 Rx Allergies Sulfa (Sulfonamide Antibiotics) Allergy (Verified 05/13/20 23:41) Resuscitation Status - Order Detail: 06/24/20 15:24 Resuscitation Status Routine Resuscitation Status: FULL: Full Resuscitation Hospitalist History - Past Medical History Other Medical History: Parkinson disease anxiety and depression Hiatal hernia Esophagitis - Past Surgical History Past Surgical History: reports: Appendectomy, Cholecystectomy, Hysterectomy - Family History Other Family History: No strong family history of CAD, CVA or cancer. - Social History Alcohol: reports: None Drugs: reports: none Living Situation: With Family - Exam General Appearance: NAD, ill appearing Eye: PERRL, anicteric sclera Eye - other findings: Shrunken eyeball ENT: normocephalic atraumatic, no oropharyngeal lesions, dry oral mucosa Neck: supple, symmetric, no JVD, no thyromegaly, no lymphadenopathy Heart: RRR, no murmur, no gallops, no rubs Heart - other findings: Tachycardia Respiratory: CTAB, no wheezes, no rales, no ronchi Gastrointestinal: soft, non-tender, non-distended, normal bowel sounds Extremities: no cyanosis, no clubbing, no edema Skin: no lesions Skin - other findings: Reduced skin turgor Neurological: no focal deficits Musculoskeletal: diffuse muscle atrophy Psychiatric: not oriented Hospitalist Results - Labs Result Diagrams: 06/24/20 13:50 06/24/20 13:50 Lab results: WBC 19.1 thou/uL (4.8-10.8) H 06/24/20 13:50 Hgb 14.4 g/dL (12.0-16.0) 06/24/20 13:50 Hct 45.1 % (36.0-47.0) 06/24/20 13:50 MCV 89.4 fL (78.0-98.0) 06/24/20 13:50 Plt Count 299 thou/uL (130-400) 06/24/20 13:50 Neutrophils % 91.4 % (42.0-75.0) H 06/24/20 13:50 Sodium 144 mmol/L (136-145) 06/24/20 13:50 Potassium 3.6 mmol/L (3.5-5.1) 06/24/20 13:50 Chloride 102 mmol/L (98-107) 06/24/20 13:50 Carbon Dioxide 27 mmol/L (23-31) 06/24/20 13:50 BUN 38 mg/dL (9.8-20.1) H 06/24/20 13:50 Creatinine 0.96 mg/dL (0.6-1.1) 06/24/20 13:50 Glucose 138 mg/dL (80-115) H 06/24/20 13:50 Lactic Acid 2.7 mmol/L (0.5-2.2) H 06/24/20 13:50 Calcium 9.7 mg/dL (7.8-10.44) 06/24/20 13:50 Total Bilirubin 0.7 mg/dL (0.2-1.2) 06/24/20 13:50 AST 14 U/L (5-34) 06/24/20 13:50 ALT Less than 7 U/L (8-55) L 06/24/20 13:50 Alkaline Phosphatase 82 U/L (40-110) 06/24/20 13:50 CK-MB (CK-2) 3.7 ng/mL (0-6.6) 06/24/20 13:50 Troponin I 0.034 ng/mL (< 0.028) H 06/24/20 13:50 Serum Total Protein 7.0 g/dL (6.0-8.3) 06/24/20 13:50 Albumin 4.3 g/dL (3.4-4.8) 06/24/20 13:50 - EKG Interpretation EKG: EKG consistent with sinus tachycardia - Radiology Interpretation Chest x-ray Status: image reviewed by me Additional Comment: No obvious acute infiltration noted Hospitalist H&P A/P - Problem (1) Acute upper GI bleed Code(s): K92.2 - GASTROINTESTINAL HEMORRHAGE, UNSPECIFIED Status: Acute (2) Dehydration Code(s): E86.0 - DEHYDRATION Status: Acute (3) Leukocytosis Code(s): D72.829 - ELEVATED WHITE BLOOD CELL COUNT, UNSPECIFIED Status: Acute Qualifiers: Leukocytosis type: bandemia Qualified Code(s): D72.825 - Bandemia (4) Lactic acidosis Code(s): E87.2 - ACIDOSIS Status: Acute (5) Encephalopathy acute Code(s): G93.40 - ENCEPHALOPATHY, UNSPECIFIED Status: Acute (6) Protein-calorie malnutrition, moderate Code(s): E44.0 - MODERATE PROTEIN-CALORIE MALNUTRITION Status: Chronic (7) Parkinson disease Code(s): G20 - PARKINSON'S DISEASE Status: Chronic (8) Rheumatoid arthritis Code(s): M06.9 - RHEUMATOID ARTHRITIS, UNSPECIFIED Status: Chronic - Plan Plan: Regarding GI bleed, I spoke with gastroenterology and patient does have severe hiatal hernia, and she does have esophagitis, at this point no plan for further endoscopy, will monitor H&H, will continue with Protonix drip, if patient persist with coffee-ground emesis then will consult GI Regarding sinus tachycardia which appears to be related with volume depletion, patient will be given aggressive IV fluid, treat her nausea and vomiting and encourage oral intake subsequently Regarding lactic acidosis and leukocytosis suspecting aspiration pneumonitis versus stress response, will continue with empiric Zosyn 3.375 mg IV every 8 hourly based on renal dose, will follow up on culture result which was sent from emergency room. Tomorrow we will repeat CBC and lactic acid We will arrange continue her home medication but doubt she will tolerate any medication at this point given her persistent nausea and vomiting. Patient most of the medication not available in our hospital system so we will obtain medication from her home and sent to pharmacy and those medication will be given to her when she is able to take. I have discussed CODE STATUS with the patient and patient wants to be a full code DVT prophylaxis SCD no Lovenox because of GI bleed GI prophylaxis patient is already on Protonix drip CODE STATUS patient is full code disposition plan based on clinical course.
[2020-06-24 15:53] LABS: Bacteria/HPF None Seen HPF (None Seen); Bilirubin Negative (Negative); Blood, Urine Trace (Negative); Clarity Clear (Clear); Glucose, Urine (Dipstick) Normal (Negative); Ketone, Urine 20 mg/dL (Negative); Leukocyte Negative Leu/uL (Negative); Nitrite Negative (Negative); Protein, Urine (Dipstick) 50 mg/dL (Neg-Trace); RBC/HPF 0-3 HPF (0-3); Squamous Epithelial 0-3 HPF (0-3); WBC/HPF 0-3 HPF (0-3); pH, Urine 5.5 (5.0-9.0)
--- NOTE | 2020-06-24 16:01 | RAD ---
Chest one view HISTORY: Chest pain. COMPARISON: 05/13/2020. FINDINGS: Cardiac silhouette is magnified by projection. Pulmonary vasculature is unremarkable. Mediastinum is midline with aortic calcification. Retrocardiac density has the appearance of a hiatal hernia. No lobar consolidation or evidence of pneumothorax. IMPRESSION : Chronic-type findings are stable. No active cardiopulmonary abnormalities are demonstrated.
[2020-06-24] MEDS ORDERED: Loratadine 10 MG TAB PO PRN (17:03)
[2020-06-24] MEDS ORDERED: Ondansetron PF 4 MG/2 ML Vial IVP PRN (17:03)
[2020-06-24] MEDS ORDERED: Diabetic Tussin 200 MG/10 ML UDCUP PO PRN (17:03)
[2020-06-24] MEDS ORDERED: Ondansetron ODT 4 MG TAB PO PRN (17:03)
[2020-06-24] MEDS ORDERED: HYDROcodone/Acetaminophen 5/325 mg Tablet PO PRN (17:03)
[2020-06-24] MEDS ORDERED: Acetaminophen 325 MG TAB PO PRN (17:03)
[2020-06-24] MEDS ORDERED: Bisacodyl 10 MG SUPP PR PRN (17:03)
[2020-06-24] MEDS ORDERED: Sodium Chloride 0.9% 1,000 ML IV SCH (17:03)
[2020-06-24] MEDS ORDERED: Labetalol HCl 100 MG/20 ML VIAL SLOW IVP PRN (17:03)
[2020-06-24] MEDS ORDERED: Senokot S 8.6-50 MG TAB PO PRN (17:03)
[2020-06-24] MEDS ORDERED: Sodium Chloride 0.65% Nasal 44 ML BOT EA NARE PRN (17:03)
[2020-06-24] MEDS ORDERED: Pantoprazole 80 MG in Sodium Chloride 0.9% 100 ML IVPB SCH (17:03)
[2020-06-24] MEDS ORDERED: Zolpidem Tartrate 5 MG TAB PO PRN (17:03)
[2020-06-24] MEDS ORDERED: Loperamide HCl 2 MG CAP PO PRN ×2 (17:03)
[2020-06-24] MEDS ORDERED: Calcium Carbonate 500 MG ChewTAB PO PRN (17:03)
[2020-06-24] MEDS ORDERED: Cepastat Lozenges 1 LOZ PO PRN (17:03)
[2020-06-24 17:08] LABS: Lactic Acid 2.6 mmol/L (0.5-2.2)
[2020-06-24 18:02] LABS: #Lymphocytes 0.4 thou/uL (1.20-3.40); #Monocytes 0.8 thou/uL (0.11-0.59); #Neutrophils 13.4 thou/uL (1.40-6.50); %Basophils 0.1 % (0.0-1.0); %Eosinophils 0.2 % (0.0-10.0); %Lymphocytes 2.9 % (21.0-51.0); %Monocytes 5.2 % (0.0-10.0); %Neutrophils 91.6 % (42.0-75.0); Mean Corpuscular HGB CONC 33.1 g/dL (32.0-36.0); Mean Corpuscular Hemoglobin 30.1 pg (27.0-31.0); Mean Corpuscular Volume 90.9 fL (78.0-98.0); Platelet Count 203 thou/uL (130-400); RBC Distribution Width 12.5 % (11.5-14.5); Red Blood Cell (RBC) Count 3.97 mill/uL (4.20-5.40); White Blood Cell (WBC) Count 14.6 thou/uL (4.8-10.8)
[2020-06-24 18:04] LABS: Hemoglobin 12.1 g/dL (12.0-16.0)
[2020-06-24] MEDS ORDERED: Acetaminophen 650 MG Suppository PR PRN (19:03)
[2020-06-24] MEDS: Dextrose 5 % And 0.9 % NaCl 1,000 ML IV SCH (19:04)
[2020-06-24] MEDS: Piperacillin/Tazobactam 3.375 GM in Sodium Chloride 0.9% 100 ML IVPB SCH (20:21)
[2020-06-24] MEDS: Amantadine HCl 100 mg Capsule PO SCH (20:22)
[2020-06-24] MEDS: CARBIDOPA PO SCH (20:40)
[2020-06-24] MEDS: LEVODOPA PO SCH (20:40)
[2020-06-24 22:11] LABS: Troponin I 0.039 ng/mL (< 0.028)
[2020-06-25 00:26] LABS: Hemoglobin 11.2 g/dL (12.0-16.0)
[2020-06-25 03:54] LABS: #Lymphocytes 1.1 thou/uL (1.20-3.40); #Monocytes 0.7 thou/uL (0.11-0.59); #Neutrophils 11.5 thou/uL (1.40-6.50); %Basophils 0.3 % (0.0-1.0); %Eosinophils 0.1 % (0.0-10.0); %Lymphocytes 8.5 % (21.0-51.0); %Monocytes 5.1 % (0.0-10.0); %Neutrophils 86.1 % (42.0-75.0); Hemoglobin 10.5 g/dL (12.0-16.0); Mean Corpuscular HGB CONC 31.9 g/dL (32.0-36.0); Mean Platelet Volume 8.9 fL (7.4-10.4); Platelet Count 193 thou/uL (130-400); RBC Distribution Width 12.4 % (11.5-14.5); White Blood Cell (WBC) Count 13.3 thou/uL (4.8-10.8)
[2020-06-25] MEDS: Dextrose 5 % And 0.9 % NaCl 1,000 ML IV SCH ×3 (03:56→22:48)
[2020-06-25 04:09] LABS: Lactic Acid 0.8 mmol/L (0.5-2.2)
[2020-06-25 04:19] LABS: Troponin I 0.034 ng/mL (< 0.028)
[2020-06-25 04:24] LABS: ALT (SGPT) Less than 7 U/L (8-55); AST (SGOT) 12 U/L (5-34); Albumin 2.9 g/dL (3.4-4.8); Alkaline Phosphatase 54 U/L (40-110); Anion Gap 8 mmol/L (10-20); BUN (Urea Nitrogen) 23 mg/dL (9.8-20.1); Bilirubin, Total 0.5 mg/dL (0.2-1.2); Calc. Creatinine Clearance 73 mL/min (70-130); Calcium 7.8 mg/dL (7.8-10.44); Carbon Dioxide 26 mmol/L (23-31); Chloride 113 mmol/L (98-107); Estimated GFR-MDRD Greater than 90; Glucose 114 mg/dL (80-115); Potassium 2.9 mmol/L (3.5-5.1); Protein, Total 4.9 g/dL (6.0-8.3); Sodium 144 mmol/L (136-145)
[2020-06-25] MEDS ORDERED: Electrolyte Replacement Protoc 1 EACH EACH FS PRN (04:45)
[2020-06-25] MEDS: Potassium Chloride 40 MEQ in Sodium Chloride 0.9% 250 ML 250 ML IVPB SCH ×2 (05:10→11:17)
[2020-06-25] MEDS: Piperacillin/Tazobactam 3.375 GM in Sodium Chloride 0.9% 100 ML IVPB SCH ×3 (05:10→22:36)
[2020-06-25 08:47] LABS: Magnesium 1.8 mg/dL (1.6-2.6)
[2020-06-25 08:50] LABS: Phosphorus 1.7 mg/dL (2.3-4.7)
[2020-06-25] MEDS ORDERED: Potassium Phosphate 15 MMOL in Sodium Chloride 0.9% 250 ML 250 ML IVPB SCH (10:45)
[2020-06-25] MEDS: Escitalopram Oxalate 20 mg Tablet PO SCH (11:17)
[2020-06-25] MEDS: Bupropion 150 MG XL TAB PO SCH (11:17)
[2020-06-25] MEDS: Folic Acid 1 MG TAB PO SCH (11:17)
[2020-06-25] MEDS: Hydroxychloroquine Sulfate 200 MG TAB PO SCH (11:17)
[2020-06-25] MEDS: CARBIDOPA PO SCH ×4 (11:18→22:35)
[2020-06-25] MEDS: LEVODOPA PO SCH ×4 (11:18→22:35)
[2020-06-25] MEDS: Carbidopa/Levodopa [Rytary Er] 36.25 MG/145 MG Capsule.Er PO SCH ×4 (11:18→22:35)
[2020-06-25] MEDS: Amantadine HCl 100 mg Capsule PO SCH ×2 (11:28→22:34)
[2020-06-25 11:36] LABS: SARS-CoV-2 MS2 Positive; SARS-CoV-2 N Gene Negative; SARS-CoV-2 S Gene Negative; SARS-CoV-2 by NAA Not Detected (NotDetected); SARS-CoV-2 orf1ab Negative
--- NOTE | 2020-06-25 11:42 | PDOC.HOSPP ---
- Subjective Encounter Date: 06/25/20 Encounter Time: 09:50 Subjective: Patient seen and examined bedside today, patient is clinically doing much better, more alert and no more tachycardia, patient does not have any further nausea or vomiting or any coffee-ground emesis. - Objective Vital Signs & Weight: Vital Signs (12 hours) Temp Pulse Ox 06/25/20 11:40 98.6 F 06/25/20 08:00 97 06/25/20 07:24 99.4 F 06/25/20 03:37 98.7 F Weight Weight 100 lb 0.027 oz Most Recent Monitor Data Heart Rate from ECG 105 NIBP 121/68 NIBP BP-Mean 85 Respiration from ECG 29 SpO2 95 I&O: 06/24/20 06/25/20 06/26/20 06:59 06:59 06:59 Intake Total 1511 Output Total 200 Balance 1311 Result Diagrams: 06/25/20 03:44 06/25/20 03:43 EKG Reviewed by me: Yes Hospitalist ROS - Review of Systems Constitutional: reports: weakness. denies: fever, chills, sweats, malaise, other ENT: denies: ear pain, ear discharge, nose pain, nose discharge, nose congestion, mouth pain, mouth swelling, throat pain, throat swelling, other Respiratory: denies: cough, dry, shortness of breath, hemoptysis, SOB with excertion, pleuritic pain, sputum, wheezing, other Cardiovascular: denies: chest pain, palpitations, orthopnea, paroxysmal noc. dyspnea, edema, light headedness, other Gastrointestinal: denies: nausea, vomiting, abdominal pain, diarrhea, constipation, melena, hematochezia, other Genitourinary: denies: dysuria, frequency, incontinence, hematuria, retention, other Musculoskeletal: denies: neck pain, shoulder pain, arm pain, back pain, hand pain, leg pain, foot pain, other Skin: denies: rash, lesions, shana, bruising, other - Medication Medications: Active Medications Generic Name Dose Route Start Last Admin Trade Name Freq PRN Reason Stop Dose Admin Acetaminophen 650 mg 06/24/20 19:03 06/24/20 20:33 Acetaminophen 650 Mg Suppository [place] 650 mg Q6H PRN Administration Headache/Fever or Pain Amantadine HCl 100 mg 06/24/20 21:00 06/25/20 11:28 Amantadine Hcl 100 Mg Capsule PO 100 mg BID RAINA Administration Bupropion HCl 150 mg 06/25/20 09:00 06/25/20 11:17 Bupropion 150 Mg Xl Tab PO 150 mg QAM RAINA Administration Escitalopram Oxalate 20 mg 06/25/20 09:00 06/25/20 11:17 Escitalopram Oxalate 20 Mg Tablet PO 20 mg DAILY RAINA Administration Folic Acid 1 mg 06/25/20 09:00 06/25/20 11:17 Folic Acid 1 Mg Tab PO 1 mg DAILY RAINA Administration Hydroxychloroquine Sulfate 200 mg 06/25/20 09:00 06/25/20 11:17 Hydroxychloroquine Sulfate 200 Mg Tab PO 200 mg DAILY RAINA Administration Piperacillin Sod/Tazobactam 100 mls @ 200 mls/hr 06/24/20 22:00 06/25/20 05:10 Sod 3.375 gm/ Sodium Chloride IVPB 100 mls Q8HR RAINA Administration Dextrose/Sodium Chloride 1,000 mls @ 125 mls/hr 06/24/20 18:30 06/25/20 11:29 D5 0.9% Ns IV 1,000 mls .Q8H RAINA Administration Pantoprazole Sodium 80 mg/ 100 mls @ 10 mls/hr 06/24/20 21:45 06/24/20 21:59 Miscellaneous Medication 1 IVPB 100 mls each/ Sodium Chloride INF RAINA Administration Potassium Chloride 40 meq/ 270 mls @ 67.5 mls/hr 06/25/20 05:00 06/25/20 11:17 Sodium Chloride IVPB 06/25/20 12:59 270 mls Q4H RAINA Administration Potassium Phosphate 15 mmol/ 255 mls @ 62.5 mls/hr 06/25/20 10:45 06/25/20 11:17 Sodium Chloride IVPB 06/25/20 13:00 255 mls NOW RAINA Administration Mirabegron 25 mg 06/25/20 09:00 06/25/20 11:28 Mirabegron Er 25 Mg Tab PO 25 mg DAILY RAINA Administration Carbidopa/Levodopa [ 1 each 06/25/20 09:00 06/25/20 11:18 Rytary Er] 36.25 Mg/ PO 1 each 145 Mg Capsule.Er QID RAINA Administration Patient's Home 0 each 06/24/20 21:00 06/25/20 11:18 Medication ( PO 1 each Carbidopa/Levodopa QID RAINA Administration 61.25/245) - Exam General Appearance: NAD, awake alert Eye: PERRL, anicteric sclera ENT: normocephalic atraumatic, no oropharyngeal lesions, moist mucosa Neck: supple, symmetric, no JVD, no thyromegaly Heart: RRR, no murmur, no gallops, no rubs Respiratory: CTAB, no wheezes, no rales, no ronchi Gastrointestinal: soft, non-tender, non-distended, normal bowel sounds Extremities: no cyanosis, no clubbing Skin: normal turgor, no lesions Neurological: no focal deficits Musculoskeletal: normal tone, normal strength Psychiatric: normal affect, normal behavior Hosp A/P (1) Acute upper GI bleed Code(s): K92.2 - GASTROINTESTINAL HEMORRHAGE, UNSPECIFIED Status: Acute (2) Dehydration Code(s): E86.0 - DEHYDRATION Status: Acute (3) Leukocytosis Code(s): D72.829 - ELEVATED WHITE BLOOD CELL COUNT, UNSPECIFIED Status: Acute Qualifiers: Leukocytosis type: bandemia Qualified Code(s): D72.825 - Bandemia (4) Lactic acidosis Code(s): E87.2 - ACIDOSIS Status: Resolved (5) Encephalopathy acute Code(s): G93.40 - ENCEPHALOPATHY, UNSPECIFIED Status: Resolved (6) Protein-calorie malnutrition, moderate Code(s): E44.0 - MODERATE PROTEIN-CALORIE MALNUTRITION Status: Chronic (7) Parkinson disease Code(s): G20 - PARKINSON'S DISEASE Status: Chronic (8) Rheumatoid arthritis Code(s): M06.9 - RHEUMATOID ARTHRITIS, UNSPECIFIED Status: Chronic (9) Hypokalemia Code(s): E87.6 - HYPOKALEMIA Status: Acute (10) Hypophosphatemia Code(s): E83.39 - OTHER DISORDERS OF PHOSPHORUS METABOLISM Status: Acute - Plan old records reviewed/req, plan discussed w/ family, continue antibiotics Today patient is doing much better, will transfer to medical floor We will replace potassium chloride as well as potassium phosphate and repeat labs tomorrow I will continue 1 more day IV antibiotic therapy empirically and based on culture result we will decide to stop antibiotic therapy Today we will start full liquid diet and advance accordingly Start PT OT Plan of care discussed with the patient's bedside, Resume all patient's home medication Current drop in hemoglobin is her baseline, on admission her hemoglobin was elevated because of hemoconcentration from dehydration Once Protonix drip is over then will change to p.o. Protonix
[2020-06-25] MEDS ORDERED: Iopamidol-370 76% 500 ML 1 ML ONE (13:52)
[2020-06-25] MEDS ORDERED: Cosyntropin 250 MCG VIAL SLOW IVP SCH (15:15)
[2020-06-25 15:25] LABS: Potassium 3.8 mmol/L (3.5-5.1)
--- NOTE | 2020-06-25 16:40 | CT ---
EXAM: CT chest, abdomen, and pelvis with IV contrast: HISTORY: Nausea, vomiting, hematemesis. Hiatal hernia. Possible volvulus. COMPARISON: Noncontrast CT thorax on 11/04/2019. FINDINGS: CT THORAX: Lungs: Areas of consolidation are seen in each lower lobe which could be related to passive atelectas is, aspiration pneumonitis versus pneumonia. Small peripheral bleb is seen in the right upper lobe. No discrete pulmonary nodule or mass is seen. Pleura: Small bilateral pleural effusions are seen. Lymph nodes: No lymphadenopathy. Mediastinum: Large hiatal hernia with the majority of the stomach above the level of the hemidiaphrag ms with suggestion of organoaxial volvulus. There is a 7 mm rounded focus of increased density seen within the right lateral aspect of the large hiatal hernia with adjacent ill-defined area of increase d density. This could be related to ingested material within the stomach, but focus of hemorrhage is a possibility. Chest wall: No abnormalities CT ABDOMEN AND PELVIS: Liver: Subcentimeter too small to characterize hypodense lesion medial segment left hepatic lobe. Gallbladder: Surgically absent.\ Pancreas: Within normal limits. Spleen:Calcified granulomata. Adrenal glands: Within normal limits. Kidneys: Subcentimeter too small to characterize hypodense lesion inferior pole left kidney and super ior pole right kidney. No hydronephrosis is seen. Urinary Bladder: The urinary bladder is unremarkable. Reproductive organs: Evidence of hysterectomy. Bowel: Moderate amount retained fecal material is seen throughout the colon. Loops of small bowel are normal in caliber. A few colonic diverticula are seen in the sigmoid colon. Adenopathy:No lymphadenopathy within the abdomen or pelvis. Peritoneum: No free fluid or fluid collection is seen. No free intraperitoneal gas is identified. Abdominal wall: Mild subcutaneous edema seen in the left posterolateral flank region and in the glute al regions bilaterally but to a lesser extent. Osseous structures: Evidence of prior vertebroplasty procedure involving a burst fracture L1 vertebra l body. There is a wedge-shaped compression fracture involving T11 vertebral body with overall stable degree of height loss compared to CT thoracic spine on 11/03/2019. There is a mild deformity in volving the superior endplate of the L3 vertebral body which may represent a mild compression deformity of indeterminate age; although, this is incompletely imaged, but this appeared to be partia lly imaged on the CT thoracic spine on 11/04/2019. IMPRESSION: 1. Dense bibasilar consolidation which is worrisome for bibasilar pneumonia or aspiration pneumonitis . 2. Small bilateral pleural effusions. 3. Large hiatal hernia with majority of the stomach above the level of the hemidiaphragms with sugges tion of a component of organoaxial volvulus. A 7 mm rounded focus of increased density is seen within the antrum of the stomach in the hiatal hernia with adjacent more ill-defined area of increase d density. This could potentially represent either ingested material or hemorrhage. Stomach is not distended with fluid. 4. Evidence of constipation. 5. Compression fractures involving T11 and L2 vertebral bodies are similar to prior study. Vertebropl asty changes of a burst fracture L1 vertebral body is again seen. 6. Above findings discussed Dr. Gomes on 06/25/2020 at 1636 hours
[2020-06-25] MEDS ORDERED: Fleet Enema 133 ML BOT FS SCH (18:00)
[2020-06-25] MEDS ORDERED: Clopidogrel Bisulfate 75 MG TAB ONE (21:54)
[2020-06-26] MEDS: Dextrose 5 % And 0.9 % NaCl 1,000 ML IV SCH ×3 (05:08→21:22)
[2020-06-26] MEDS: Piperacillin/Tazobactam 3.375 GM in Sodium Chloride 0.9% 100 ML IVPB SCH ×3 (05:08→21:22)
[2020-06-26 06:03] LABS: #Lymphocytes 1.1 thou/uL (1.20-3.40); #Monocytes 0.7 thou/uL (0.11-0.59); #Neutrophils 6.4 thou/uL (1.40-6.50); %Basophils 0.3 % (0.0-1.0); %Eosinophils 0.3 % (0.0-10.0); %Monocytes 8.7 % (0.0-10.0); %Neutrophils 77.7 % (42.0-75.0); Hemoglobin 8.6 g/dL (12.0-16.0); Mean Corpuscular HGB CONC 30.9 g/dL (32.0-36.0); Mean Corpuscular Hemoglobin 28.4 pg (27.0-31.0); Mean Corpuscular Volume 91.8 fL (78.0-98.0); Mean Platelet Volume 9.3 fL (7.4-10.4); Platelet Count 168 thou/uL (130-400); RBC Distribution Width 12.3 % (11.5-14.5); Red Blood Cell (RBC) Count 3.05 mill/uL (4.20-5.40); White Blood Cell (WBC) Count 8.3 thou/uL (4.8-10.8)
[2020-06-26 06:37] LABS: Anion Gap 8 mmol/L (10-20); BUN (Urea Nitrogen) 9 mg/dL (9.8-20.1); Calc. Creatinine Clearance 80 mL/min (70-130); Calcium 7.1 mg/dL (7.8-10.44); Carbon Dioxide 23 mmol/L (23-31); Chloride 112 mmol/L (98-107); Estimated GFR-MDRD Greater than 90; Glucose 84 mg/dL (80-115); Magnesium 1.6 mg/dL (1.6-2.6); Potassium 3.3 mmol/L (3.5-5.1); Sodium 140 mmol/L (136-145)
[2020-06-26 06:47] LABS: Phosphorus 1.8 mg/dL (2.3-4.7)
--- NOTE | 2020-06-26 07:31 | CON ---
DATE OF CONSULTATION: 06/25/2020 REASON FOR CONSULTATION: Coffee-ground emesis. HISTORY OF PRESENT ILLNESS: Ms. Kaur is a 64-year-old female who presented to the hospital last night with 14 hours of repetitive nausea and vomiting, productive of coffee-ground like material and some melenic stools. She had a similar presentation back in May, at which time she had an EGD with LA grade B/C esophagitis. She was placed on b.i.d. PPI for that. When she followed up in our office a couple of weeks later, she was doing much better, she reports. She has had another episode. The history comes in talking with the patient and her and reviewing the old records. Apparently, she has had a long history of intermittent problems with nausea. She also has significant constipation with only 1 to 2 bowel movements a week, which has been related to her Parkinson's. The other significant factor in terms of something has changed recently is that Dr. Derrick More weaned her off her prednisone recently about 2 weeks ago. It is unclear if she was weaned off or the patient ran out. In any event, the patient is on newer medicines for arthritis. Hydroxychloroquine has been started recently as well as tramadol. She denies NSAID use. She is also on iron, Pepcid, and pantoprazole. In the emergency room, pulse was 132 and blood pressure 140/63. She was given fluids and Protonix. Presently, she does not want to eat, but she feels much better and is no longer vomiting per the nurse. PAST MEDICAL HISTORY: 1. Parkinson's. 2. Rheumatoid arthritis. 3. Previous severe esophagitis with repetitive vomiting. 4. EGD last month as noted in HPI. PAST SURGICAL HISTORY: 1. Appendectomy. 2. Cholecystectomy. 3. Hysterectomy. 4. Orthopedic surgery including rotator cuff surgery. 5. She had a colonoscopy in 2018. Reviewing her previous records, Dr. Stauffer got as well. She had chronic nausea and vomiting for years, occurs usually once every day or every other day, usually within about 2 to 3 hours of eating. She has no dysphagia or odynophagia. REVIEW OF SYSTEMS: Positive for weight loss. Positive for hoarseness. Positive for throat pain after vomiting. Negative for fever, chills, rashes, myalgias, or arthralgias. FAMILY HISTORY: Negative for GI malignancies. SOCIAL HISTORY: Lives with her in [place]. Negative for alcohol, drugs, or tobacco. MEDICATIONS: 1. Tylenol. 2. Amantadine. 3. Wellbutrin. 4. Carbidopa and levodopa. 5. Lexapro. 6. Folvite. 7. [place] p.r.n. 8. Plaquenil. 9. Normodyne. 10. Imodium p.r.n. 11. Myrbetriq. 12. Zofran. 13. Protonix drip. 14. Prednisone, states she was recently on just 5 mg a day, but that has been run out. PHYSICAL EXAMINATION: VITAL SIGNS: T-max on the was 102.1, T current 98.6, heart rate 95 down from 120s on admission, and blood pressure 126/81. GENERAL: She has temporal wasting. She looks thin and frail. She talks with a very weak voice. She is in no distress. NECK: Supple. No adenopathy. LUNGS: Clear. HEART: Regular rate and rhythm without clicks or murmurs. ABDOMEN: Notable for incisions around the umbilicus previous cholecystectomy. EXTREMITIES: Some muscle wasting. There is no tenderness. There are no rashes in her skin. LABORATORY STUDIES: White count was 19,000 on admission with hemoglobin of 14, now 13.5 with hemoglobin of 10.5, which is close to her baseline of 9 to 10, which it has been chronically. She had 91% segs on admission, 86% now. No bands. Sodium 144, potassium 2.9, BUN and creatinine are 23 and 0.57, baseline BUN is around 7, yesterday was 38. Liver function tests normal. Lactic acid 2.6, now 0.8. Phosphorus 1.7. Magnesium 1.8. Last admission iron was 69, protein 4.9, albumin 2.9, normal B12 on 11/29/2018. IMAGING STUDIES: A chest x-ray that was normal. ASSESSMENT: 1. Coffee-ground emesis with dark stool. She is on iron at home, that may be the reason for dark stools. She was very dehydrated on presentation with a leukocytosis and hemoconcentration, hemoglobin 14, her baseline is around 10, that is where she is again now after hydration. Her hemoglobin has come back to normal. I do not think she has had a real significant gastrointestinal bleed at this point in time. I suspect it is related to her emetogenic injury and history of reflux as noted on endoscopy in April. 2. Repetitive bouts of nausea and vomiting. This may be related to some gastroparesis or motility disturbance from her Parkinson's medications. She has had these issues before and has been on steroids long-term and these have been weaned or at least they ran out recently and some adrenal insufficiency could be at play for this acute event, would not explain her chronic symptoms of nausea and vomiting intermittently. Those I think are more related to her Parkinson's and the effect of that and the Parkinson's medicines on gisselle gastrointestinal tract. 3. She has a history of large hiatal hernia, it could be that she is getting intermittent volvulus with this, but it has been reported to be sliding-type. We will go ahead and image her upper abdomen and chest with a CT scan to make sure we are not missing something else. This will also afford a good view of her colon to see if she has any significant impaction or severe constipation. PLAN: 1. CT scan of chest. 2. Continue IV fluids and IV PPI. 3. Cortrosyn stimulation test. 4. If the patient has persistent nausea, would consider giving her stress dose steroids as she has been on them for years and ran out 2 weeks ago. Job ID: [id number]
[2020-06-26] MEDS: Amantadine HCl 100 mg Capsule PO SCH ×2 (07:43→21:20)
[2020-06-26] MEDS: Folic Acid 1 MG TAB PO SCH (07:43)
[2020-06-26] MEDS: Hydroxychloroquine Sulfate 200 MG TAB PO SCH (07:43)
[2020-06-26] MEDS: Bupropion 150 MG XL TAB PO SCH (07:43)
[2020-06-26] MEDS: Escitalopram Oxalate 20 mg Tablet PO SCH (07:43)
[2020-06-26] MEDS: Carbidopa/Levodopa [Rytary Er] 36.25 MG/145 MG Capsule.Er PO SCH ×4 (07:45→21:21)
[2020-06-26] MEDS: LEVODOPA PO SCH ×4 (07:45→21:21)
[2020-06-26] MEDS: CARBIDOPA PO SCH ×4 (07:45→21:21)
[2020-06-26] MEDS ORDERED: Magnesium Sulfate 2 GM in Sodium Chloride 0.9% 100 ML IVPB SCH (08:30)
[2020-06-26] MEDS ORDERED: Potassium Phosphate 15 MMOL in Sodium Chloride 0.9% 250 ML 250 ML IVPB SCH (08:30)
[2020-06-26] MEDS ORDERED: Magnesium 2 GM/50 ML 2 GM in Premix Bag 1 BAG IVPB SCH (08:45)
[2020-06-26] MEDS ORDERED: Pantoprazole 40 MG VIAL IVP SCH ×4 (10:15→21:00)
[2020-06-26] MEDS ORDERED: Sodium Chloride 0.9% (PF) 10 ML VIAL FS PRN (10:45)
[2020-06-26] MEDS ORDERED: Lidocaine 1% PF 5 ML VIAL ONE (12:31)
[2020-06-26] MEDS ORDERED: PROPOFOL 200 MG/20 ML VIAL ONE (12:31)
[2020-06-26] MEDS ORDERED: Piperacillin/Tazobactam 3.375 GM VIAL ONE (13:57)
[2020-06-26] MEDS ORDERED: Sodium Chloride 0.9% 0 ML ONE (13:58)
--- NOTE | 2020-06-26 19:16 | PDOC.HOSPP ---
- Subjective Encounter Date: 06/26/20 Encounter Time: 09:00 Subjective: Patient seen and examined for GI bleeding with aspiration pneumonia. Had 2 large bowel movement which were dark last night. - Objective Vital Signs & Weight: Vital Signs (12 hours) Temp Pulse Resp BP Pulse Ox 06/26/20 19:15 98.3 F 103 H 20 97/55 L 98 06/26/20 15:48 98.9 F 96 16 99/62 96 06/26/20 15:05 98.2 F 96 16 108/69 97 06/26/20 12:00 98.5 F 89 16 109/65 95 06/26/20 08:00 96 06/26/20 07:50 98.3 F 89 18 101/52 L 96 Weight Weight 100 lb 0.027 oz Most Recent Monitor Data Heart Rate from ECG 95 NIBP 134/71 NIBP BP-Mean 92 Respiration from ECG 68 SpO2 97 I&O: 06/25/20 06/26/20 06/27/20 06:59 06:59 06:59 Intake Total 1511 1972 2505 Output Total 200 500 200 Balance 1311 1472 2305 Result Diagrams: 06/27/20 06:11 06/27/20 06:11 Additional Labs: 06/25/20 03:43: Phosphorus 1.7 L 06/26/20 05:49: Potassium 3.3 L, Chloride 112 H, Anion Gap 8 L, BUN 9 L, Creatinine 0.52 L, Calcium 7.1 L, Phosphorus 1.8 L 06/26/20 05:49: RBC 3.05 L, Hgb 8.6 L, Hct 28.0 L, MCHC 30.9 L, Neutrophils % 77.7 H, Lymphocytes % 13.0 L, Lymphocytes # 1.1 L, Monocytes # 0.7 H Microbiology - Entire Visit 06/24/20 15:10 Venous blood - Left Hand Blood Culture - Preliminary NO GROWTH AT 48 HOURS 06/24/20 15:10 Venous blood - Right Arm Blood Culture - Preliminary NO GROWTH AT 48 HOURS 06/24/20 15:19 Urine Straight Catheter Urine Culture - Final NO GROWTH AT 48 HOURS Radiology Reviewed by me: Yes (CT chestReviewed) Hospitalist ROS - Review of Systems Respiratory: reports: cough, dry, SOB with excertion. denies: shortness of breath, hemoptysis, pleuritic pain, sputum, wheezing, other Cardiovascular: denies: chest pain, palpitations, orthopnea, paroxysmal noc. dyspnea, edema, light headedness, other Gastrointestinal: reports: nausea All other systems reviewed; all pertinent +/- noted in HPI/Subj - Medication Medications: Active Medications Generic Name Dose Route Start Last Admin Trade Name Freq PRN Reason Stop Dose Admin Acetaminophen 650 mg 06/24/20 19:03 06/24/20 20:33 Acetaminophen 650 Mg Suppository NM 650 mg Q6H PRN Administration Headache/Fever or Pain Amantadine HCl 100 mg 06/24/20 21:00 06/26/20 07:43 Amantadine Hcl 100 Mg Capsule PO 100 mg BID RAINA Administration Bupropion HCl 150 mg 06/25/20 09:00 06/26/20 07:43 Bupropion 150 Mg Xl Tab PO 150 mg QAM RAINA Administration Cosyntropin 250 mcg 06/25/20 15:15 06/26/20 12:07 Cosyntropin 250 Mcg Vial SLOW IVP 250 mcg WILLCALL RAINA Administration Escitalopram Oxalate 20 mg 06/25/20 09:00 06/26/20 07:43 Escitalopram Oxalate 20 Mg Tablet PO 20 mg DAILY RAINA Administration Folic Acid 1 mg 06/25/20 09:00 06/26/20 07:43 Folic Acid 1 Mg Tab PO 1 mg DAILY RAINA Administration Hydroxychloroquine Sulfate 200 mg 06/25/20 09:00 06/26/20 07:43 Hydroxychloroquine Sulfate 200 Mg Tab PO 200 mg DAILY RAINA Administration Piperacillin Sod/Tazobactam 100 mls @ 200 mls/hr 06/24/20 22:00 06/26/20 16:19 Sod 3.375 gm/ Sodium Chloride IVPB Not Given Q8HR RAINA Dextrose/Sodium Chloride 1,000 mls @ 125 mls/hr 06/24/20 18:30 06/26/20 07:43 D5 0.9% Ns IV 1,000 mls .Q8H RAINA Administration Mirabegron 25 mg 06/25/20 09:00 06/26/20 08:57 Mirabegron Er 25 Mg Tab PO 25 mg DAILY RAINA Administration Ondansetron HCl 4 mg 06/24/20 17:03 06/25/20 13:14 Ondansetron Pf 4 Mg/2 Ml Vial IVP 4 mg Q6H PRN Administration Nausea/Vomiting Carbidopa/Levodopa [ 1 each 06/25/20 09:00 06/26/20 17:02 Rytary Er] 36.25 Mg/ PO 1 each 145 Mg Capsule.Er QID RAINA Administration Patient's Home 0 each 06/24/20 21:00 06/26/20 17:02 Medication ( PO 1 each Carbidopa/Levodopa QID RAINA Administration 61.25/245) - Exam General Appearance: ill appearing Heart: RRR, no gallops Respiratory: no wheezes, no ronchi Gastrointestinal: normal bowel sounds, no guarding, no rigidity, tender to palpation (Mild epigastric tenderness) Extremities: no cyanosis Hosp A/P - Plan DVT proph w/SCDs 62-year-old female with recent hospitalization for GI bleeding presented on 06/24 with generalized weakness, confusion, shortness of breath along with nausea and vomiting. Her mentation gradually improved. Her work-up was consistent with bilateral aspiration pneumonitis with large hiatal hernia/cons tipation. She had 2 large dark bowel movement last night. #Toxic metabolic encephalopathyPOAmultifactorialimproving #Sepsis due to bilateral aspiration pneumoniaPOAprobably due to large hiatal hernia with recurrent aspiration We will continue IV Zosyn. WBC improving with improving left shift. Will consult speech therapy. Patient will need a repeat chest x-ray after 4 weeks. #Acute GI bleeding with acute GI blood loss anemiaPOApatient had a recent evaluation for the same problem. She is scheduled for EGD today. Will change Protonix to 40 mg IV twice daily #Constipation We will start bowel regimen. #Lactic acidosisimproving #Electrolyte abnormalitieshypokalemia, hypophosphatemia, hypomagnesemia we will replace accordingly #Other problemsmoderate protein calorie malnutrition, Parkinson disease, rheumatoid arthritis, physical deconditioning
--- NOTE | 2020-06-26 19:32 | OP ---
DATE OF PROCEDURE: 06/26/2020 PROCEDURE PERFORMED: Esophagogastroduodenoscopy. PREMEDICATION: Given by Anesthesiology Department. PREPROCEDURE DIAGNOSES: 1. Acute on chronic anemia (hemoglobin dropped from 14 down to 8). 2. History of melena prior to admission, large hiatal hernia with possible volvulus seen on CT. POSTPROCEDURE DIAGNOSES: 1. Large hiatal hernia with the Z-line at 27 cm and hernia waist narrowing at 40 cm. 2. No volvulus. 3. Mild LA grade A erosive esophagitis, otherwise normal upper endoscopy without bleeding. DESCRIPTION OF PROCEDURE: Written consents were obtained prior to procedure. After adequate sedation, the forward-viewing endoscope was advanced down the esophagus under direct vision. The Z-line was noted at 27 cm. Mild focal erosions were noted in the lower esophagus about the Z-line, LA grade A. The hiatal hernia was entered. The mucosa appears normal. The hiatal hernia waist is noted at 40 cm. The body and antrum below the hernia waves was visualized and appeared normal. Pylorus is patent. The endoscope was then advanced into the duodenum where the 3rd and 2nd portion duodenum appeared normal. The duodenal bulb appeared normal. Retroflexion did not show any lesion or Milad's erosions. The stomach mucosa appears entirely normal. There was no evidence of volvulus seen. The stomach was then decompressed, the instrument was then fully removed. The patient tolerated procedure well. ASSESSMENT: 1. Large hiatal hernia without volvulus, Z-line at 27 cm, and hernia waist at 40 cm. 2. No evidence of GI bleeding. 3. Exam otherwise normal to third portion of duodenum. RECOMMENDATION: 1. Resume diet. 2. Pantoprazole 40 mg p.o. daily. 3. The patient can be discharged home tomorrow if continues to be stable. Job ID: [id number]
[2020-06-27] MEDS: Piperacillin/Tazobactam 3.375 GM in Sodium Chloride 0.9% 100 ML IVPB SCH ×3 (05:45→22:13)
[2020-06-27] MEDS: Dextrose 5 % And 0.9 % NaCl 1,000 ML IV SCH ×2 (05:46→10:20)
[2020-06-27 06:38] LABS: #Lymphocytes 0.8 thou/uL (1.20-3.40); #Monocytes 0.5 thou/uL (0.11-0.59); #Neutrophils 4.4 thou/uL (1.40-6.50); %Basophils 0.2 % (0.0-1.0); %Eosinophils 0.3 % (0.0-10.0); %Lymphocytes 13.8 % (21.0-51.0); %Monocytes 8.6 % (0.0-10.0); %Neutrophils 77.1 % (42.0-75.0); Hemoglobin 9.2 g/dL (12.0-16.0); Mean Corpuscular Hemoglobin 29.4 pg (27.0-31.0); Mean Corpuscular Volume 91.7 fL (78.0-98.0); Mean Platelet Volume 9.1 fL (7.4-10.4); Platelet Count 164 thou/uL (130-400); RBC Distribution Width 12.4 % (11.5-14.5); Red Blood Cell (RBC) Count 3.14 mill/uL (4.20-5.40); White Blood Cell (WBC) Count 5.7 thou/uL (4.8-10.8)
[2020-06-27 06:40] LABS: Reticulocyte Count 0.8 % (0.5-1.5)
[2020-06-27 06:56] LABS: ALT (SGPT) Less than 7 U/L (8-55); AST (SGOT) 7 U/L (5-34); Albumin 2.5 g/dL (3.4-4.8); Alkaline Phosphatase 54 U/L (40-110); Anion Gap 7 mmol/L (10-20); BUN (Urea Nitrogen) Less than 4 mg/dL (9.8-20.1); Bilirubin, Total 0.4 mg/dL (0.2-1.2); Calc. Creatinine Clearance 84 mL/min (70-130); Calcium 7.2 mg/dL (7.8-10.44); Carbon Dioxide 25 mmol/L (23-31); Chloride 112 mmol/L (98-107); Estimated GFR-MDRD Greater than 90; Globulin 1.9 g/dL (2.4-3.5); Glucose 90 mg/dL (80-115); Iron 53 ug/dL (50-170); Iron Binding Capacity, Total 170 mcg/dL (265-497); Magnesium 1.8 mg/dL (1.6-2.6); Potassium 3.1 mmol/L (3.5-5.1); Protein, Total 4.4 g/dL (6.0-8.3); Sodium 141 mmol/L (136-145)
[2020-06-27] MEDS ORDERED: Potassium Phosphate 15 MMOL in Sodium Chloride 0.9% 250 ML 250 ML IVPB SCH (08:00)
--- NOTE | 2020-06-27 09:08 | PRG ---
DATE OF SERVICE: 06/27/2020 SUBJECTIVE: Ms. Kaur is feeling okay today. She denies any abdominal pain or nausea. Her appetite is not great, but she is tolerating breakfast so far. She had a couple of small episodes of dark stool reported last night, but she is hemodynamically and clinically stable and hemoglobin also stable up a bit to 9.2. OBJECTIVE: VITAL SIGNS: Temperature 98.7, pulse 87, blood pressure 129/70, 96% oxygen saturation on 2 L nasal cannula. GENERAL: No acute distress, lying in bed comfortably. HEART: Regular rate and rhythm. LUNGS: Clear to auscultation bilaterally. ABDOMEN: Soft, nontender to palpation. EXTREMITIES: No peripheral edema. LABORATORY STUDIES: Hemoglobin up to 9.2, WBC 5.7, platelets 164. Sodium 141, potassium 3.1, BUN is less than 4. Note that on admission, it was very elevated to 38, creatinine is 0.50. Total bilirubin 0.4, alkaline phosphatase 54, AST 7, ALT less than 7, albumin 2.5. ASSESSMENT AND PLAN: 1. Melena, appears to be resolving. 2. Acute blood loss anemia, stabilized today. 3. Large hiatal hernia. 4. LA grade A reflux esophagitis. I reviewed the upper endoscopy findings from yesterday with the patient. She does indeed have a large hiatal hernia, but there were no Milad erosions. She has some distal mild erosive esophagitis. There was no high-risk bleeding lesion identified. Continue with daily proton pump inhibitor. Notably, the BUN has trended down rapidly over the past couple of days and hemoglobin is stabilized. No plan for any further endoscopic investigation. Gastrointestinal will sign off. Please call back anytime with questions or concerns. Job ID: [id number]
[2020-06-27] MEDS: Bupropion 150 MG XL TAB PO SCH (10:20)
[2020-06-27] MEDS: Amantadine HCl 100 mg Capsule PO SCH ×2 (10:20→21:53)
[2020-06-27] MEDS: Hydroxychloroquine Sulfate 200 MG TAB PO SCH (10:20)
[2020-06-27] MEDS: Folic Acid 1 MG TAB PO SCH (10:20)
[2020-06-27] MEDS: Escitalopram Oxalate 20 mg Tablet PO SCH (10:20)
[2020-06-27] MEDS: LEVODOPA PO SCH ×4 (10:21→21:56)
[2020-06-27] MEDS: CARBIDOPA PO SCH ×4 (10:21→21:56)
[2020-06-27] MEDS: Carbidopa/Levodopa [Rytary Er] 36.25 MG/145 MG Capsule.Er PO SCH ×4 (10:22→21:54)
--- NOTE | 2020-06-27 19:01 | PDOC.HOSPP ---
- Subjective Encounter Date: 06/27/20 Encounter Time: 11:00 Subjective: Patient seen and examined for aspiration pneumonia with GI bleeding. Underwent EGD yesterday. Had 2 tarry stool last night. Denies any lightheadedness or dizziness. No nausea, vomiting or abdominal pain reported. - Objective Vital Signs & Weight: Vital Signs (12 hours) Temp Pulse Resp BP Pulse Ox 06/27/20 15:19 98.0 F 87 16 116/68 98 06/27/20 11:07 98.3 F 89 16 130/70 96 06/27/20 07:06 98.7 F 87 14 129/70 96 Weight Weight 100 lb 0.027 oz Most Recent Monitor Data Heart Rate from ECG 95 NIBP 134/71 NIBP BP-Mean 92 Respiration from ECG 68 SpO2 97 I&O: 06/26/20 06/27/20 06/28/20 06:59 06:59 06:59 Intake Total 1972 4255 Output Total 500 700 Balance 1472 3555 Result Diagrams: 06/27/20 06:11 06/27/20 06:11 Additional Labs: Abnormal Lab Results - Last 48 hrs 06/26/20 05:49: Potassium 3.3 L, Chloride 112 H, Anion Gap 8 L, BUN 9 L, Creatinine 0.52 L, Calcium 7.1 L, Phosphorus 1.8 L 06/26/20 05:49: RBC 3.05 L, Hgb 8.6 L, Hct 28.0 L, MCHC 30.9 L, Neutrophils % 77.7 H, Lymphocytes % 13.0 L, Lymphocytes # 1.1 L, Monocytes # 0.7 H 06/27/20 06:11: Potassium 3.1 L, Chloride 112 H, Anion Gap 7 L, BUN Less than 4 L, Creatinine 0.50 L, Calcium 7.2 L, Phosphorus 2.0 L, TIBC 170 L, ALT Less than 7 L, Serum Total Protein 4.4 L, Albumin 2.5 L, Globulin 1.9 L 06/27/20 06:11: RBC 3.14 L, Hgb 9.2 L, Hct 28.8 L, Neutrophils % 77.1 H, Lymphocytes % 13.8 L, Lymphocytes # 0.8 L Microbiology - Entire Visit 06/24/20 15:10 Venous blood - Left Hand Blood Culture - Preliminary NO GROWTH AT 48 HOURS 06/24/20 15:10 Venous blood - Right Arm Blood Culture - Preliminary NO GROWTH AT 48 HOURS 06/24/20 15:19 Urine Straight Catheter Urine Culture - Final NO GROWTH AT 48 HOURS Hospitalist ROS - Review of Systems Cardiovascular: denies: chest pain, palpitations, orthopnea, paroxysmal noc. dyspnea, edema, light headedness, other Gastrointestinal: denies: nausea, vomiting, abdominal pain, diarrhea, constipation, melena, hematochezia, other - Medication Medications: Active Medications Generic Name Dose Route Start Last Admin Trade Name Freq PRN Reason Stop Dose Admin Acetaminophen 650 mg 06/24/20 19:03 06/24/20 20:33 Acetaminophen 650 Mg Suppository KS 650 mg Q6H PRN Administration Headache/Fever or Pain Amantadine HCl 100 mg 06/24/20 21:00 06/27/20 10:20 Amantadine Hcl 100 Mg Capsule PO 100 mg BID RAINA Administration Bupropion HCl 150 mg 06/25/20 09:00 06/27/20 10:20 Bupropion 150 Mg Xl Tab PO 150 mg QAM RAINA Administration Cosyntropin 250 mcg 06/25/20 15:15 06/26/20 12:07 Cosyntropin 250 Mcg Vial SLOW IVP 250 mcg WILLCALL RAINA Administration Escitalopram Oxalate 20 mg 06/25/20 09:00 06/27/20 10:20 Escitalopram Oxalate 20 Mg Tablet PO 20 mg DAILY RAINA Administration Folic Acid 1 mg 06/25/20 09:00 06/27/20 10:20 Folic Acid 1 Mg Tab PO 1 mg DAILY RAINA Administration Hydroxychloroquine Sulfate 200 mg 06/25/20 09:00 06/27/20 10:20 Hydroxychloroquine Sulfate 200 Mg Tab PO 200 mg DAILY RAINA Administration Piperacillin Sod/Tazobactam 100 mls @ 200 mls/hr 06/24/20 22:00 06/27/20 15:15 Sod 3.375 gm/ Sodium Chloride IVPB 100 mls Q8HR RAINA Administration Dextrose/Sodium Chloride 1,000 mls @ 50 mls/hr 06/27/20 07:49 06/27/20 10:20 D5 0.9% Ns IV Not Given .Q20H RAINA Mirabegron 25 mg 06/25/20 09:00 06/27/20 10:21 Mirabegron Er 25 Mg Tab PO 25 mg DAILY RAINA Administration Ondansetron HCl 4 mg 06/24/20 17:03 06/25/20 13:14 Ondansetron Pf 4 Mg/2 Ml Vial IVP 4 mg Q6H PRN Administration Nausea/Vomiting Carbidopa/Levodopa [ 1 each 06/25/20 09:00 06/27/20 17:32 Rytary Er] 36.25 Mg/ PO 1 each 145 Mg Capsule.Er QID RAINA Administration Patient's Home 0 each 06/24/20 21:00 06/27/20 17:33 Medication ( PO 1 each Carbidopa/Levodopa QID RAINA Administration 61.25/245) - Exam General Appearance: ill appearing Heart: RRR, no gallops Respiratory: no wheezes, rales, rhonchi Gastrointestinal: non-tender, normal bowel sounds Extremities: no cyanosis Neurological: no new deficit Hosp A/P - Plan DVT proph w/SCDs 62-year-old female with recent hospitalization for GI bleeding presented on 06/24 with generalized weakness, confusion, shortness of breath along with nausea and vomiting. Her work-up was consistent with bilateral aspiration pneumonitis with large hiatal hernia/constipation. She underwent EGD on 06/26 large hiatal hernia with erosive esophagitis. There was no volvulus. She was started on antibiotics for aspiration pneumonitis. Her mentation gradually improved. #Toxic metabolic encephalopathyPOAmultifactorialimproving #Sepsis due to bilateral aspiration pneumoniaprobably due to large hiatal hernia with recurrent aspiration continue IV Zosyn. Will wean oxygen. Patient will need a repeat chest x-ray after 4 weeks. #Acute GI bleeding with acute GI blood loss anemiapatient had a recent evaluation for the same problem. Underwent EGD this admission. Recheck CBC in a.m. Continue PPIs #Constipation Continue bowel regimen. #Lactic acidosisimproving #Electrolyte abnormalitieshypokalemia, hypophosphatemia, hypomagnesemia We will replace #Other problemsmoderate protein calorie malnutrition, Parkinson disease, rheumatoid arthritis, physical deconditioning
[2020-06-28] MEDS: Dextrose 5 % And 0.9 % NaCl 1,000 ML IV SCH (03:14)
[2020-06-28] MEDS: Piperacillin/Tazobactam 3.375 GM in Sodium Chloride 0.9% 100 ML IVPB SCH ×2 (05:15→14:17)
[2020-06-28 06:42] LABS: #Lymphocytes 0.7 thou/uL (1.20-3.40); #Monocytes 0.5 thou/uL (0.11-0.59); #Neutrophils 4.5 thou/uL (1.40-6.50); %Basophils 0.5 % (0.0-1.0); %Eosinophils 0.4 % (0.0-10.0); %Lymphocytes 11.9 % (21.0-51.0); %Monocytes 8.1 % (0.0-10.0); %Neutrophils 79.1 % (42.0-75.0); Hemoglobin 10.3 g/dL (12.0-16.0); Mean Corpuscular HGB CONC 32.3 g/dL (32.0-36.0); Mean Corpuscular Hemoglobin 29.2 pg (27.0-31.0); Mean Corpuscular Volume 90.3 fL (78.0-98.0); Mean Platelet Volume 9.1 fL (7.4-10.4); Platelet Count 190 thou/uL (130-400); RBC Distribution Width 12.1 % (11.5-14.5); Red Blood Cell (RBC) Count 3.54 mill/uL (4.20-5.40); White Blood Cell (WBC) Count 5.7 thou/uL (4.8-10.8)
[2020-06-28 07:11] LABS: Anion Gap 10 mmol/L (10-20); BUN (Urea Nitrogen) 4 mg/dL (9.8-20.1); Calc. Creatinine Clearance 80 mL/min (70-130); Calcium 7.8 mg/dL (7.8-10.44); Carbon Dioxide 26 mmol/L (23-31); Chloride 105 mmol/L (98-107); Estimated GFR-MDRD Greater than 90; Glucose 80 mg/dL (80-115); Magnesium 1.9 mg/dL (1.6-2.6); Phosphorus 2.4 mg/dL (2.3-4.7); Potassium 3.7 mmol/L (3.5-5.1); Sodium 137 mmol/L (136-145)
[2020-06-28 07:28] VITALS: BP 125/72; TEMP 98.8
[2020-06-28] MEDS ORDERED: Saccharomyces boulardii 250 MG CAP PO SCH (09:00)
[2020-06-28] MEDS: Bupropion 150 MG XL TAB PO SCH (10:11)
[2020-06-28] MEDS: Folic Acid 1 MG TAB PO SCH (10:11)
[2020-06-28] MEDS: Hydroxychloroquine Sulfate 200 MG TAB PO SCH (10:11)
[2020-06-28] MEDS: Amantadine HCl 100 mg Capsule PO SCH (10:12)
[2020-06-28] MEDS: Escitalopram Oxalate 20 mg Tablet PO SCH (10:12)
[2020-06-28] MEDS: Carbidopa/Levodopa [Rytary Er] 36.25 MG/145 MG Capsule.Er PO SCH ×2 (10:25→14:20)
[2020-06-28] MEDS: CARBIDOPA PO SCH ×2 (10:26→14:19)
[2020-06-28] MEDS: LEVODOPA PO SCH ×2 (10:26→14:19)
--- NOTE | 2020-06-28 17:35 | DIS ---
DATE OF ADMISSION: 06/24/2020 DATE OF DISCHARGE: 06/28/2020 DISCHARGE DISPOSITION: Home. FOLLOWUP: Follow up with primary care physician at [facility] in 1 week. Follow up with Gastroenterology, Dr. Mc in 2 weeks. [facility] has been arranged. ALLERGIES: SULFA. DISCHARGE MEDICATIONS: Augmentin 875 mg b.i.d. for 1 week. The patient was advised to continue PPIs. All other home medications were left unchanged. The patient was evaluated on the day of discharge. Denies any new complaints. No chest pain or shortness of breath at rest reported. She has mild dry cough. VITAL SIGNS: On the day of discharge, temperature 98.8 with pulse rate of 88, respirations of 16, blood pressure 125/72, with O2 saturation 96% on room air. GENERAL: A 64-year-old female with Parkinson disease and large hiatal hernia with recent hospitalization for GI bleeding, presented to the emergency room with nausea and vomiting. She was unable to hold any liquids as well as medication down. In the emergency room, she was lethargic along with the altered mentation. Please refer to the history and physical for further details. The patient was admitted to the hospital with a diagnosis of GI bleeding with aspiration pneumonia. She underwent a CT scan of the chest, abdomen, and pelvis that showed dense bibasilar consolidation, which is worrisome for bibasilar pneumonia/aspiration pneumonitis. It also showed large hiatal hernia with majority of the stomach above the level of the hemidiaphragm with evidence of constipation. She had several episodes of dark tarry stool this hospitalization. Hemoglobin dropped from 11.2 to 8.6. An EGD was performed on 06/26, which showed large hiatal hernia without volvulus. It also showed grade A erosive esophagitis without any bleeding. Hemoglobin has stabilized. She was started on broad-spectrum antibiotics on admission that will be transitioned to Augmentin for aspiration pneumonia. Home health care has been arranged. She will benefit from repeat hemoglobin check after 1 week. FINAL DIAGNOSES: 1. Toxic metabolic encephalopathy. 2. Sepsis with acute organ dysfunction secondary to bilateral aspiration pneumonia - present on admission. 3. Acute gastrointestinal bleeding with acute gastrointestinal blood loss. 4. Erosive esophagitis. 5. Large hiatal hernia. 6. Constipation. 7. Lactic acidosis. 8. Multiple electrolyte abnormalities including hypokalemia, hypophosphatemia, and hypomagnesemia. 9. Moderate protein-calorie malnutrition. 10. Parkinson disease. 11. Rheumatoid arthritis. 12. Physical deconditioning. The patient understands the above plan of care. I also discussed with the spouse over the phone. Time coordinating the discharge was 33 minutes. Job ID: [id number]
--- NOTE | 2020-06-30 13:09 | EKG ---
Test Reason : Blood Pressure : / mmHG Vent. Rate : 127 BPM Atrial Rate : 041 BPM P-R Int : 000 ms QRS Dur : 082 ms QT Int : 444 ms P-R-T Axes : 000 107 222 degrees QTc Int : 645 ms Undetermined rhythm Rightward axis Possible Inferior infarct , age undetermined Abnormal ECG Confirmed by JUANA FLORENCE M.D. ([id number]), senior technical editor LEXIS THOMAS ([id number]) on 06/30/2020 1:08:54 PM Referred By: Confirmed By:JUANA FLORENCE M.D.
== END 2020-06-28 17:29 | disposition home health service (06) | DRG 871 ==
LOC: ERS 13:02 → IMCU/EMU 15:31 → T4-B 06-25 17:19
PROVIDERS: ADMIT Internal Medicine; ATTEND Internal Medicine
PROC: 0DJ08ZZ Inspection of Upper Intestinal Tract, Via Natural or Artificial Opening Endoscopic (ICD-10-PCS; principal; 2020-06-26)
DX: A41.9 Sepsis, unspecified organism (principal); I21.A1 Myocardial infarction type 2; J69.0 Pneumonitis due to inhalation of food and vomit; G92 Toxic encephalopathy; K92.2 Gastrointestinal hemorrhage, unspecified; E44.0 Moderate protein-calorie malnutrition; E87.2 Acidosis; Z68.1 Body mass index [BMI] 19.9 or less, adult; D62 Acute posthemorrhagic anemia; K22.10 Ulcer of esophagus without bleeding; G20 Parkinson's disease; D72.829 Elevated white blood cell count, unspecified; E86.0 Dehydration; K59.00 Constipation, unspecified; E83.42 Hypomagnesemia; R53.81 Other malaise; K44.9 Diaphragmatic hernia without obstruction or gangrene; E83.39 Other disorders of phosphorus metabolism; K21.00 Gastro-esophageal reflux disease with esophagitis, without bleeding; E87.6 Hypokalemia; Z20.828 Contact with and (suspected) exposure to other viral communicable diseases; M06.9 Rheumatoid arthritis, unspecified; Z79.899 Other long term (current) drug therapy; Z90.49 Acquired absence of other specified parts of digestive tract; Z90.710 Acquired absence of both cervix and uterus; Z88.2 Allergy status to sulfonamides; Z87.891 Personal history of nicotine dependence
CPT/HCPCS: 36415; 51701; 71045; 71260; 74177; 80048; 80053; 80400; 81003; 81015; 82553; 82728; 83540; 83550; 83605; 83735; 84100; 84484; 85025; 85046; 86850; 86900; 86901; 87040; 87086; 87635; 93005; 96365; 96366; 96375; C9113; J0696; J0834; J2405; J2543; J2704; J3475; J3480; J3490; J7050; Q9967; U0003

== ENCOUNTER 2020-07-11 13:43 | Outpatient (CLI) | payer MEDICARE ==
--- NOTE | 2020-07-11 14:17 | RAD ---
Abdomen one view HISTORY: Abdomen pain. FINDINGS: Very large amount of stools apparent throughout the transverse colon and left colon. Gas ap parent within the right colon and rectum. Small bowel gas pattern is nonspecific. Metallic clips overlie the gallbladder fossa. IMPRESSION : Constipation.
== END 2020-07-11 13:44 | disposition home or self-care (01) ==
LOC: BICRAD 13:43
PROVIDERS: ATTEND Internal Medicine Gastroenterology
DX: K44.9 Diaphragmatic hernia without obstruction or gangrene (principal); K21.9 Gastro-esophageal reflux disease without esophagitis; K59.00 Constipation, unspecified; G20 Parkinson's disease
CPT/HCPCS: 74018

== ENCOUNTER 2020-08-03 12:41 | Inpatient (IN) | payer MEDICARE ==
[2020-08-03 14:37] LABS: #Lymphocytes 0.7 thou/uL (1.20-3.40); #Neutrophils 12.7 thou/uL (1.40-6.50); %Basophils 0.1 % (0.0-1.0); %Eosinophils 0.1 % (0.0-10.0); %Lymphocytes 4.9 % (21.0-51.0); %Monocytes 6.6 % (0.0-10.0); %Neutrophils 88.4 % (42.0-75.0); Hemoglobin 13.4 g/dL (12.0-16.0); Mean Corpuscular HGB CONC 31.3 g/dL (32.0-36.0); Mean Corpuscular Hemoglobin 27.8 pg (27.0-31.0); Mean Corpuscular Volume 88.9 fL (78.0-98.0); Mean Platelet Volume 9.8 fL (7.4-10.4); Platelet Count 353 thou/uL (130-400); RBC Distribution Width 13.5 % (11.5-14.5); Red Blood Cell (RBC) Count 4.81 mill/uL (4.20-5.40); White Blood Cell (WBC) Count 14.4 thou/uL (4.8-10.8)
[2020-08-03 14:38] LABS: Albumin 4.6 g/dL (3.4-4.8); Chloride 96 mmol/L (98-107); Potassium 4.1 mmol/L (3.5-5.1); Sodium 144 mmol/L (136-145)
[2020-08-03 14:39] LABS: Anion Gap 19 mmol/L (10-20); Bilirubin, Total 0.7 mg/dL (0.2-1.2); Calcium 9.7 mg/dL (7.8-10.44); Carbon Dioxide 33 mmol/L (23-31); Glucose 145 mg/dL (80-115); Protein, Total 7.6 g/dL (6.0-8.3)
[2020-08-03 14:40] LABS: ALT (SGPT) Less than 7 U/L (8-55); AST (SGOT) 7 U/L (5-34); Alkaline Phosphatase 91 U/L (40-110); BUN (Urea Nitrogen) 22 mg/dL (9.8-20.1); Calc. Creatinine Clearance 0 mL/min (70-130); Estimated GFR-MDRD 61
[2020-08-03] MEDS ORDERED: Iopamidol-370 76% 500 ML 1 ML ONE (15:20)
[2020-08-03] MEDS ORDERED: Pantoprazole 40 MG VIAL ONE (17:52)
[2020-08-03] MEDS ORDERED: Ondansetron PF 4 MG/2 ML Vial ONE (17:52)
[2020-08-03 19:49] LABS: Bacteria/HPF None Seen HPF (None Seen); Bilirubin Negative (Negative); Blood, Urine Negative (Negative); Clarity Clear (Clear); Glucose, Urine (Dipstick) Normal (Negative); Ketone, Urine 10 mg/dL (Negative); Leukocyte 250 Leu/uL (Negative); Nitrite Negative (Negative); Protein, Urine (Dipstick) 70 mg/dL (Neg-Trace); RBC/HPF 0-3 HPF (0-3); Specific Gravity, Urine 1.027 (1.002-1.036); Squamous Epithelial 0-3 HPF (0-3); WBC/HPF 21-50 HPF (0-3)
[2020-08-03 21:13] LABS: Lactic Acid 1.7 mmol/L (0.5-2.2)
--- NOTE | 2020-08-03 21:59 | CT ---
ABDOMEN CT WITH CONTRAST PELVIC CT WITH CONTRAST 08/03/20 HISTORY: Hematemesis, started yesterday. FINDINGS: There appears to be ingested material in the visualized distal thoracic esophagus. There is evidence of periesophageal fat stranding, incompletely evaluated. Normal heart size. No significant pericardial fluid. Normal caliber aorta. Gallbladder is surgically absent. Limited evaluation of the solid organs due to motion degradation. There appears to be perisplenic flu id. The spleen, pancreas and adrenal glands have appropriate enhancement. Symmetric enhancement of th e kidneys. No obstructive uropathy. Gallbladder is surgically absent. No gastrohepatic, retrocrural or periportal lymphadenopathy. No mesenteric mass, lymphadenopathy or free air. Small amount of free fluid in the left pericolonic g utter is noted. There is marked distention of the stomach. Note, previously, the entirety of the stom ach appeared to be herniated and in the posterior mediastinum. Majority of the stomach now appears to be subdiaphragmatic. Correlate for previous/recent surgery with Zully fundoplication. Multiple nor mal caliber small bowel loops. Ileocecal junction appears to be normal. Appendix is difficult to appr eciate. Scattered fecal material in a nondistended, nondilated colon. There is a small left lateral h ernia containing a segment of small bowel through the defect. No evidence of bowel incarceration or o bstruction. Overall, there is a mild amount of fecal material in the colon. Correlate for constipation. PELVIC CT: Uterus is surgically absent. No pelvic mass, lymphadenopathy, free air or free fluid. Urinary bladder is unremarkable. Remote compression fractures in the distal thoracic spine at T11 and at the proximal lumbar spine at L1 are noted. IMPRESSION: 1. Edematous changes involving the visualized thoracic esophagus. 2. Marked distention of the stomach. Nasogastric tube should be placed to allow for gastric deco mpression. Possibility of mesenteroaxial volvulus cannot be entirely excluded. Consider GI and genera l surgical consultation. 3. Copious fecal material in the colon. 4. Results discussed with Dr. Emerson on 08/03/20 at 8:52 PM. POS: PPP
--- NOTE | 2020-08-03 22:26 | RAD ---
KUB: 08/03/2020 HISTORY: Vomiting blood FINDINGS: No pneumothorax, lobar consolidation, or alveolar edema. There is a nasogastric tube in zayda ce, distal tip terminating at the level of the diaphragmatic hiatus, probably within a hiatal hernia. Aeration within the lung bases appears to have improved when compared to prior chest radiogra ph performed 06/24/2020. IMPRESSION: Nasogastric tube as above.
[2020-08-03 22:31] LABS: Hemoglobin 11.5 g/dL (12.0-16.0)
--- NOTE | 2020-08-03 22:50 | PDOC.BPN ---
- Brief Progress Note [id number] HP dictated
--- NOTE | 2020-08-03 23:59 | HP ---
CHIEF COMPLAINT: Vomiting blood. HISTORY OF PRESENT ILLNESS: Ms. Kaur is a 64-year-old female with past medical history of rheumatoid arthritis, Parkinson disease, GI bleed, and anemia presents to the emergency room with vomiting blood/hematemesis. Workup in the emergency room, the patient had lactic acid of 2.4, hemoglobin 13.4, imaging studies including CT of the abdomen showed marked distention of the stomach. Possible mesenteroaxial volvulus cannot be entirely excluded. ED physician consulted with the GI, who advised to admit the patient and start the patient on IV PPI and GI will consult. The patient is being admitted to the hospital for further management. PAST MEDICAL HISTORY: As mentioned above in the history of present illness. PAST SURGICAL HISTORY: 1. Appendectomy. 2. Hysterectomy. 3. Shoulder surgery. 4. Hand surgery. SOCIAL HISTORY: Denies alcohol use, drug use, tobacco use. FAMILY HISTORY: Maternal history of cardiac disease, coronary artery disease. HOME MEDICATIONS: See home medication reconciliation form for updated medications. ALLERGIES: ALLERGIC TO SULFA. REVIEW OF SYSTEMS: Review of 14 systems negative except what is mentioned in the history of present illness. PHYSICAL EXAMINATION: GENERAL: The patient is kind of lethargic, but in moderate distress. VITAL SIGNS: Blood pressure 146/91, pulse is 120, respiratory rate is 24, temperature is 98.4, and oxygen saturation is 99% on room air. HEAD AND NECK: Normocephalic. Neck is supple. CHEST: Decreased air entry bilaterally. ABDOMEN: Distended, mildly tender, bowel sounds present. NEUROLOGIC: Awake, moving extremities. PSYCH: Unable to assess. EXTREMITIES: No clubbing or cyanosis. LABORATORY DATA: As mentioned above in the history of present illness. IMAGING STUDIES: As mentioned above in the history of present illness. ASSESSMENT AND PLAN: 1. Acute gastrointestinal bleeding, upper. 2. Abdominal distention. 3. Parkinson disease. 4. Rheumatoid arthritis. 5. History of gastrointestinal bleed/ulcers. PLAN: 1. Admit. 2. Keep n.p.o. 3. NG tube connected to suction. 4. GI consulted by ED physician for further management. As per ER physician, discussed with GI, who advised to admit the patient, place NG tube and place the patient on IV PPI. 5. IV fluids. 6. Reconcile home medications. 7. DVT prophylaxis as appropriate. 8. Monitor hemoglobin and hematocrit. 9. DVT prophylaxis as appropriate. 10. Expected length of stay, 2 midnights or more. Job ID: [id number]
[2020-08-04] MEDS ORDERED: cefTRIAXone\\ROCEPHIN 1 GM VIAL ONE (03:59)
[2020-08-04] MEDS: Sodium Chloride 0.9% 1,000 ML IV SCH ×3 (04:08→16:30)
[2020-08-04] MEDS: cefTRIAXone\\ROCEPHIN 1 GM in Sodium Chloride 0.9% 100 ML IVPB SCH ×2 (04:08→21:31)
[2020-08-04 05:17] LABS: ALT (SGPT) Less than 7 U/L (8-55); AST (SGOT) 9 U/L (5-34); Albumin 3.6 g/dL (3.4-4.8); Alkaline Phosphatase 70 U/L (40-110); Anion Gap 14 mmol/L (10-20); BUN (Urea Nitrogen) 29 mg/dL (9.8-20.1); Bilirubin, Total 0.6 mg/dL (0.2-1.2); Calc. Creatinine Clearance 0 mL/min (70-130); Calcium 8.3 mg/dL (7.8-10.44); Carbon Dioxide 29 mmol/L (23-31); Chloride 104 mmol/L (98-107); Estimated GFR-MDRD 83; Globulin 2.1 g/dL (2.4-3.5); Glucose 88 mg/dL (80-115); Potassium 3.5 mmol/L (3.5-5.1); Protein, Total 5.7 g/dL (6.0-8.3); Sodium 143 mmol/L (136-145)
[2020-08-04 06:53] LABS: #Lymphocytes 0.8 thou/uL (1.20-3.40); #Monocytes 1.2 thou/uL (0.11-0.59); #Neutrophils 15.2 thou/uL (1.40-6.50); %Basophils 0.2 % (0.0-1.0); %Eosinophils 0.1 % (0.0-10.0); %Lymphocytes 4.7 % (21.0-51.0); %Monocytes 6.7 % (0.0-10.0); %Neutrophils 88.2 % (42.0-75.0); Hemoglobin 10.8 g/dL (12.0-16.0); Mean Corpuscular HGB CONC 33.2 g/dL (32.0-36.0); Mean Corpuscular Hemoglobin 29.5 pg (27.0-31.0); Mean Platelet Volume 9.9 fL (7.4-10.4); Platelet Count 210 thou/uL (130-400); RBC Distribution Width 13.2 % (11.5-14.5); Red Blood Cell (RBC) Count 3.64 mill/uL (4.20-5.40); White Blood Cell (WBC) Count 17.2 thou/uL (4.8-10.8)
--- NOTE | 2020-08-04 07:55 | PDOC.HOSPP ---
- Subjective Encounter Date: 08/04/20 (f/u hematemesis) Encounter Time: 07:52 Subjective: Pt without complaints, denies any current nausea. Also denies abd pain. She has an NG tube in place - no bloody aspirate - Objective Result Diagrams: 08/04/20 06:34 08/04/20 04:45 Hospitalist ROS - Medication Medications: Active Medications Generic Name Dose Route Start Last Admin Trade Name Freq PRN Reason Stop Dose Admin Sodium Chloride 1,000 mls @ 100 mls/hr 08/03/20 21:45 08/04/20 04:08 Normal Saline 0.9% IV 1,000 mls .Q10H RAINA Administration Ceftriaxone Sodium 1 gm/ 100 mls @ 200 mls/hr 08/03/20 22:00 08/04/20 04:08 Sodium Chloride IVPB 100 mls Q24HR RAINA Administration - Exam General Appearance: NAD Heart: RRR, no murmur Respiratory: CTAB, no wheezes Gastrointestinal: soft, non-tender, normal bowel sounds Extremities: no cyanosis, no clubbing, no edema Skin - other findings: contracture of LLE, joint erosions/ulnar deviation of wrists/fingers/toes Hosp A/P (1) GI bleed Code(s): K92.2 - GASTROINTESTINAL HEMORRHAGE, UNSPECIFIED Status: Acute Qualifiers: GI bleed type/associated pathology: unspecified gastrointestinal hemorrhage type Qualified Code(s): K92.2 - Gastrointestinal hemorrhage, unspecified (2) Anemia Code(s): D64.9 - ANEMIA, UNSPECIFIED Status: Acute Qualifiers: Other causes of anemia: acute posthemorrhagic (3) Parkinson disease Code(s): G20 - PARKINSON'S DISEASE Status: Chronic (4) Rheumatoid arthritis Code(s): M06.9 - RHEUMATOID ARTHRITIS, UNSPECIFIED Status: Chronic Qualifiers: Laterality: bilateral - Plan GI bleed/hematemesis - GI consult - continue NG tube and IV protonix - q6h cbc - type and screen Tachycardia - monitor on telemetry - I think pt can go to the floor, bp's are normal Parkinsons and RA - resume home meds when able to take PO - meds need reconciling DVT prophy - scd's, no pharmacologic DVT prophy due to hematemesis GI prophy - on BID IV protonix code status full reviewed plan of care with patient, no questions or further needs at end of eval
[2020-08-04 08:38] LABS: SARS-CoV-2 MS2 Positive; SARS-CoV-2 N Gene Negative; SARS-CoV-2 S Gene Negative; SARS-CoV-2 by NAA Not Detected (NotDetected); SARS-CoV-2 orf1ab Negative
[2020-08-04] MEDS: Pantoprazole 40 MG VIAL IVP SCH ×2 (09:20→21:31)
[2020-08-04 11:25] LABS: #Monocytes 1.1 thou/uL (0.11-0.59); %Basophils 0.3 % (0.0-1.0); %Eosinophils 0.1 % (0.0-10.0); %Lymphocytes 6.2 % (21.0-51.0); %Monocytes 6.8 % (0.0-10.0); %Neutrophils 86.7 % (42.0-75.0); Hemoglobin 9.9 g/dL (12.0-16.0); Mean Corpuscular HGB CONC 31.8 g/dL (32.0-36.0); Mean Corpuscular Hemoglobin 28.6 pg (27.0-31.0); Mean Corpuscular Volume 89.9 fL (78.0-98.0); Mean Platelet Volume 10.2 fL (7.4-10.4); Platelet Count 213 thou/uL (130-400); RBC Distribution Width 13.2 % (11.5-14.5); Red Blood Cell (RBC) Count 3.46 mill/uL (4.20-5.40); White Blood Cell (WBC) Count 16.2 thou/uL (4.8-10.8)
--- NOTE | 2020-08-04 14:39 | CON ---
DATE OF CONSULTATION: REASON FOR CONSULTATION: Vomiting and vomiting some coffee-ground emesis. HISTORY OF PRESENT ILLNESS: Honey Kaur is a very fragile looking 64-year-old female, who has been hospitalized several times in this hospital. The most recent admission was in June 2020 and at that time, she presented with similar symptom. She was seen by Dr. Mc and had an EGD done. The EGD was done a month ago. As per the operative report, she had mild distal esophagitis, large hiatus hernia, but no definite evidence of gastric volvulus. The patient has had this nausea and vomiting off and on, and she was also found to have large hiatus hernia. The patient has had previous endoscopic studies in the past several times. The patient came to the ER because of history of nausea and vomiting and vomiting some coffee-grounds emesis. She had normal CBC on admission. She had abdominal CAT scan, which shows markedly dilated stomach, possibility of volvulus. An NG tube placement done and NG is draining basically bilious material. I do not see anymore fresh blood or any coffee-ground material in the NG tube. Her abdomen is very soft and nondistended. The patient's blood count did drop down slowly from 13.4 to 10.8 and to 9.9. At the present time, the NG tube is draining bilious material and no fresh blood or any coffee-ground aspirate seen. She has no more abdominal pain at this time. No relevant history. ALLERGIES: SULFA. SOCIAL HISTORY: The patient does not smoke or drink alcohol. MEDICAL ILLNESSES: 1. Parkinson disease. 2. Rheumatoid arthritis. 3. Chronic reflux esophagitis. 4. Hiatus hernia. 5. Previous EGD documented erosive esophagitis. Most recent one was done in June 2020. SURGERIES: 1. Appendectomy. 2. Hysterectomy. 3. Shoulder surgery. 4. Hand surgery. 5. Multiple EGDs. FAMILY HISTORY: Heart disease. HOME MEDICINE LIST: Reviewed. SYSTEM REVIEW: Basically remarkable for abdominal pain, nausea, vomiting, and vomiting coffee-ground material. She does have some joint pains and is seeing a cigarette package examiner. PHYSICAL EXAMINATION: GENERAL: Revealed a very fragile looking thin built female, appears comfortable, in no distress. She is very sleepy and barely arousable. VITAL SIGNS: Actually stabilized. Temperature is 98.2 degrees Fahrenheit, pulse is 104, and blood pressure is 122/65. HEENT: Conjunctivae are clear. NECK: Supple. CARDIOVASCULAR SYSTEM: Normal heart sounds. LUNGS: Clear to auscultation. ABDOMEN: Soft and nondistended. Abdomen is nontender. Active bowel sounds. EXTREMITIES: Reveal no edema. LABORATORY DATA: The lab data shows mild anemia today. On admission, she had normal CBC with hemoglobin 13.4, hematocrit 42.8, platelet count was 360,000, and WBC 14,400. Today; WBC 16,200, hemoglobin 9.9, hematocrit 31.1, MCV is 89.9, and platelet count 213,000. Chemistry panel today; sodium 143, potassium 3.5, chloride 104, bicarb 29, BUN is 29, creatinine 0.71, glucose is 88, calcium 8.3, bilirubin 0.6, AST 9, ALT 7, and alkaline phosphatase 70. Abdominal CAT scan done showed evidence of markedly distended stomach, large amount of fluids, and large amount of stool in the colon. CLINICAL IMPRESSION: 1. A 64-year-old female with recurrent nausea and vomiting. This has been going on for several years. Apparently, she has a history of chronic hiatal hernia. She was hospitalized in May and June of 2020. Last EGD was done by Dr. Mc in June 2020 and showed no definite gastric volvulus. She had mild esophagitis and hiatus hernia. Based on the history, I believe that she mostly has intermittent source of volvulus, which accounts for the nausea, vomiting, and also coffee-ground emesis. 2. Rheumatoid arthritis. 3. Parkinson disease. 4. Hiatus hernia. 5. Chronic esophagitis. RECOMMENDATION: 1. IV PPI. 2. May remove NG tube later on today and start clear liquid diet. 3. Follow up H and H. The patient had EGD done just recently repeat endoscopy studies. If she does well on clear liquid diet, advance diet to regular diet. Dr. Mc will see the patient on Thursday . Job ID: [id number]
[2020-08-04] MEDS ORDERED: Sodium Chloride 0.9% 1,000 ML IV SCH (16:53)
--- NOTE | 2020-08-04 16:55 | PDOC.BPN ---
- Brief Progress Note Encounter Date: 08/04/20 Encounter Time: 16:[address] Laureano and no interventions planned, NG tube removed and diet advanced. Meds reconcilled and will resume most of home meds - hold vitamins/supplements. Will continue IV protonix for tonight. Recheck CBC tonight and in AM for interval change.
--- NOTE | 2020-08-04 17:14 | EKG ---
Test Reason : Blood Pressure : / mmHG Vent. Rate : 129 BPM Atrial Rate : 129 BPM P-R Int : 158 ms QRS Dur : 080 ms QT Int : 402 ms P-R-T Axes : 083 097 081 degrees QTc Int : 588 ms Sinus tachycardia Inferior infarct , age undetermined Anterolateral infarct , age undetermined Abnormal ECG Confirmed by SUZANNE ANNA DO ([id number]), newspaper managing editor LEXIS THOMAS ([id number]) on 08/04/2020 5:13:33 PM Referred By: Confirmed By:SUZANNE ANNA DO
[2020-08-04 17:18] LABS: #Lymphocytes 0.8 thou/uL (1.20-3.40); #Monocytes 0.8 thou/uL (0.11-0.59); #Neutrophils 13.3 thou/uL (1.40-6.50); %Eosinophils 0.1 % (0.0-10.0); %Monocytes 5.5 % (0.0-10.0); %Neutrophils 89.4 % (42.0-75.0); Hemoglobin 9.8 g/dL (12.0-16.0); Mean Corpuscular HGB CONC 31.6 g/dL (32.0-36.0); Mean Corpuscular Hemoglobin 28.3 pg (27.0-31.0); Mean Corpuscular Volume 89.6 fL (78.0-98.0); Mean Platelet Volume 9.7 fL (7.4-10.4); Platelet Count 199 thou/uL (130-400); RBC Distribution Width 13.2 % (11.5-14.5); Red Blood Cell (RBC) Count 3.47 mill/uL (4.20-5.40); White Blood Cell (WBC) Count 14.8 thou/uL (4.8-10.8)
[2020-08-04] MEDS: Carbidopa/Levodopa [Rytary Er] 36.25 MG/145 MG Capsule.Er PO SCH ×2 (18:35→21:32)
[2020-08-04] MEDS: Carbidopa/Levodopa [Rytary Er] 61.25 MG/245 MG Capsule.Er PO SCH ×2 (18:36→21:33)
[2020-08-04] MEDS: Amantadine HCl 100 mg Capsule PO SCH (21:32)
[2020-08-04 23:47] LABS: #Monocytes 0.8 thou/uL (0.11-0.59); #Neutrophils 9.2 thou/uL (1.40-6.50); %Basophils 0.4 % (0.0-1.0); %Eosinophils 0.1 % (0.0-10.0); %Lymphocytes 8.9 % (21.0-51.0); %Monocytes 7.2 % (0.0-10.0); %Neutrophils 83.4 % (42.0-75.0); Hemoglobin 9.2 g/dL (12.0-16.0); Mean Corpuscular HGB CONC 31.1 g/dL (32.0-36.0); Mean Corpuscular Hemoglobin 28.1 pg (27.0-31.0); Mean Corpuscular Volume 90.5 fL (78.0-98.0); Mean Platelet Volume 10.2 fL (7.4-10.4); Platelet Count 195 thou/uL (130-400); RBC Distribution Width 13.1 % (11.5-14.5); Red Blood Cell (RBC) Count 3.28 mill/uL (4.20-5.40)
[2020-08-05 04:25] LABS: #Lymphocytes 1.1 thou/uL (1.20-3.40); #Monocytes 0.8 thou/uL (0.11-0.59); %Basophils 0.4 % (0.0-1.0); %Eosinophils 0.1 % (0.0-10.0); %Lymphocytes 10.8 % (21.0-51.0); %Monocytes 7.8 % (0.0-10.0); %Neutrophils 80.9 % (42.0-75.0); Hemoglobin 9.2 g/dL (12.0-16.0); Mean Corpuscular HGB CONC 31.8 g/dL (32.0-36.0); Mean Corpuscular Hemoglobin 28.4 pg (27.0-31.0); Mean Corpuscular Volume 89.3 fL (78.0-98.0); Mean Platelet Volume 9.9 fL (7.4-10.4); Platelet Count 193 thou/uL (130-400); RBC Distribution Width 13.2 % (11.5-14.5); Red Blood Cell (RBC) Count 3.22 mill/uL (4.20-5.40); White Blood Cell (WBC) Count 9.9 thou/uL (4.8-10.8)
[2020-08-05 04:39] LABS: Anion Gap 12 mmol/L (10-20); BUN (Urea Nitrogen) 21 mg/dL (9.8-20.1); Calc. Creatinine Clearance 67 mL/min (70-130); Calcium 7.6 mg/dL (7.8-10.44); Carbon Dioxide 24 mmol/L (23-31); Chloride 107 mmol/L (98-107); Estimated GFR-MDRD Greater than 90; Glucose 61 mg/dL (80-115); Potassium 3.3 mmol/L (3.5-5.1); Sodium 140 mmol/L (136-145)
[2020-08-05] MEDS ORDERED: Dextrose 5% in Water 1,000 ML IV PRN (06:31)
[2020-08-05] MEDS ORDERED: Dextrose 50% Abboject 50 ML SYRINGE SLOW IVP PRN (06:31)
[2020-08-05] MEDS: D5 1/2 NS w/40 mEq KCL 1,000 ML IV SCH ×2 (06:48→21:59)
--- NOTE | 2020-08-05 07:57 | PDOC.HOSPP ---
- Subjective Encounter Date: 08/05/20 (f/u hematemesis) Encounter Time: 07:55 Subjective: Pt without complaints this morning. Denies any abdominal pain/n/v. She has not had a BM since admission. She denies any urinary symptoms. She was started on a liquid diet yesterday and tolerated it well. This AM her blood sugar was low, and I started IVF containing potassium and dextrose. By report, she is to undergo EGD today. - Objective Vital Signs & Weight: Vital Signs (12 hours) Temp Pulse Resp BP Pulse Ox 08/05/20 07:19 98.1 F 98 18 108/55 L 95 08/05/20 03:30 98.3 F 102 H 16 118/57 L 94 L 08/04/20 23:25 98.9 F 104 H 20 122/56 L 95 Weight Weight 102 lb 15.294 oz I&O: 08/04/20 08/05/20 08/06/20 06:59 06:59 06:59 Intake Total 2160 Output Total 255 Balance 1905 Result Diagrams: 08/05/20 04:09 08/05/20 04:09 Additional Labs: Accuchecks 08/05/20 07:17 POC Glucose 162 H EKG Reviewed by me: Yes (tele - sinus 90's (range 90-110's)) Hospitalist ROS - Medication Medications: Active Medications Generic Name Dose Route Start Last Admin Trade Name Freq PRN Reason Stop Dose Admin Amantadine HCl 100 mg 08/04/20 21:00 08/04/20 21:32 Amantadine Hcl 100 Mg Capsule PO 100 mg BID RAINA Administration Dextrose/Water 25 gm 08/05/20 06:31 08/05/20 06:45 Dextrose 50% Abboject 50 Ml Syringe SLOW IVP 25 gm PRN PRN Administration Hypoglycemia Ceftriaxone Sodium 1 gm/ 100 mls @ 200 mls/hr 08/03/20 22:00 08/04/20 21:31 Sodium Chloride IVPB 100 mls Q24HR RAINA Administration Sodium Chloride 1,000 mls @ 50 mls/hr 08/04/20 16:53 08/04/20 17:32 Normal Saline 0.9% IV 1,000 mls .Q20H RAINA Administration Potassium Chloride/Dextrose/Sod Cl 1,000 mls @ 75 mls/hr 08/05/20 06:45 08/05/20 06:48 D5 1/2 Ns W/40 Meq Kcl IV 1,000 mls .[id number] RAINA Administration Pantoprazole Sodium 40 mg 08/04/20 09:00 08/04/20 21:31 Pantoprazole 40 Mg Vial IVP 40 mg BID RAINA Administration Carbidopa/Levodopa [ 1 each 08/04/20 17:00 08/04/20 21:32 Rytary Er] 36.25 Mg/ PO 1 each 145 Mg Capsule.Er QID RAINA Administration Carbidopa/Levodopa [ 2 each 08/04/20 17:00 08/04/20 21:33 Rytary Er] 61.25 Mg/ PO 2 each 245 Mg Capsule.Er QID RAINA Administration - Exam General Appearance: NAD Heart: RRR, no murmur Respiratory: CTAB, no wheezes, no rales, no ronchi Gastrointestinal: soft, non-tender, non-distended, normal bowel sounds Extremities: no cyanosis, no edema Extremities - other findings: unchanged - changes in joints secondary to RA Psychiatric: normal affect Hosp A/P (1) GI bleed Code(s): K92.2 - GASTROINTESTINAL HEMORRHAGE, UNSPECIFIED Status: Resolved Qualifiers: GI bleed type/associated pathology: unspecified gastrointestinal hemorrhage type Qualified Code(s): K92.2 - Gastrointestinal hemorrhage, unspecified (2) Anemia Code(s): D64.9 - ANEMIA, UNSPECIFIED Status: Acute Qualifiers: Other causes of anemia: acute posthemorrhagic (3) Parkinson disease Code(s): G20 - PARKINSON'S DISEASE Status: Chronic (4) Rheumatoid arthritis Code(s): M06.9 - RHEUMATOID ARTHRITIS, UNSPECIFIED Status: Chronic Qualifiers: Laterality: bilateral (5) Hypoglycemia Code(s): E16.2 - HYPOGLYCEMIA, UNSPECIFIED Status: Acute (6) Hypokalemia Code(s): E87.6 - HYPOKALEMIA Status: Acute - Plan GI bleed/hematemesis - Appreciate GI consult - by report, EGD today - continue IV protonix Hypoglycemia and hypokalemia - D5 1/2 NS with potassium while NPO Tachycardia - mild and asx UTI - on Rocephin. Unfortunately, do not see a culture. WBC has normalized, will continue rocephin and review at discharge if oral meds are needed. Parkinsons and RA - continue home meds - reconcilled yesterday DVT prophy - scd's, no pharmacologic DVT prophy due to hematemesis GI prophy - on BID IV protonix code status full reviewed plan of care with patient, no questions or further needs at end of eval
[2020-08-05] MEDS ORDERED: predniSONE 5 MG TAB PO PRN (08:00)
[2020-08-05] MEDS: Bupropion 150 MG XL TAB PO SCH (08:14)
[2020-08-05] MEDS: Amantadine HCl 100 mg Capsule PO SCH ×2 (08:14→21:58)
[2020-08-05] MEDS: Hydroxychloroquine Sulfate 200 MG TAB PO SCH (08:14)
[2020-08-05] MEDS: Pantoprazole 40 MG VIAL IVP SCH ×2 (08:15→21:58)
[2020-08-05] MEDS: Escitalopram Oxalate 20 mg Tablet PO SCH (08:15)
[2020-08-05] MEDS: Carbidopa/Levodopa [Rytary Er] 61.25 MG/245 MG Capsule.Er PO SCH ×4 (08:24→21:59)
[2020-08-05] MEDS: Carbidopa/Levodopa [Rytary Er] 36.25 MG/145 MG Capsule.Er PO SCH ×4 (08:24→21:59)
[2020-08-05] MEDS ORDERED: PROPOFOL 200 MG/20 ML VIAL ONE (11:43)
[2020-08-05 12:45] LABS: Bacteria/HPF None Seen HPF (None Seen); Bilirubin Negative (Negative); Blood, Urine Negative (Negative); Clarity Clear (Clear); Glucose, Urine (Dipstick) 100 mg/dL (Negative); Ketone, Urine 40 mg/dL (Negative); Leukocyte 250 Leu/uL (Negative); Nitrite Negative (Negative); Protein, Urine (Dipstick) 20 mg/dL (Neg-Trace); RBC/HPF 0-3 HPF (0-3); Specific Gravity, Urine 1.031 (1.002-1.036); Squamous Epithelial 0-3 HPF (0-3); Urobilinogen Normal mg/dL (Less than 2)
[2020-08-05 12:47] LABS: Urine Culture Reflex Yes Yes
[2020-08-05] MEDS ORDERED: Promethazine HCl 25 MG/ML VIAL SLOW IVP PRN (17:59)
[2020-08-05] MEDS ORDERED: Promethazine HCl 25 MG/ML VIAL IM PRN (17:59)
[2020-08-05] MEDS ORDERED: Ondansetron HCl/PF 4 MG/2 ML Vial IVP PRN (17:59)
[2020-08-05] MEDS: cefTRIAXone\\ROCEPHIN 1 GM in Sodium Chloride 0.9% 100 ML IVPB SCH (21:58)
[2020-08-06 04:51] LABS: #Monocytes 0.6 thou/uL (0.11-0.59); #Neutrophils 4.5 thou/uL (1.40-6.50); %Basophils 0.7 % (0.0-1.0); %Eosinophils 0.1 % (0.0-10.0); %Lymphocytes 15.5 % (21.0-51.0); %Monocytes 10.2 % (0.0-10.0); %Neutrophils 73.4 % (42.0-75.0); Hemoglobin 8.7 g/dL (12.0-16.0); Mean Corpuscular HGB CONC 31.3 g/dL (32.0-36.0); Mean Corpuscular Hemoglobin 28.2 pg (27.0-31.0); Mean Platelet Volume 9.8 fL (7.4-10.4); Platelet Count 186 thou/uL (130-400); RBC Distribution Width 12.9 % (11.5-14.5); Red Blood Cell (RBC) Count 3.08 mill/uL (4.20-5.40); White Blood Cell (WBC) Count 6.2 thou/uL (4.8-10.8)
[2020-08-06 05:07] LABS: Anion Gap 10 mmol/L (10-20); BUN (Urea Nitrogen) 10 mg/dL (9.8-20.1); Calc. Creatinine Clearance 88 mL/min (70-130); Calcium 7.4 mg/dL (7.8-10.44); Carbon Dioxide 25 mmol/L (23-31); Chloride 106 mmol/L (98-107); Estimated GFR-MDRD Greater than 90; Glucose 79 mg/dL (80-115); Potassium 3.5 mmol/L (3.5-5.1); Sodium 137 mmol/L (136-145)
--- NOTE | 2020-08-06 07:19 | OP ---
DATE OF PROCEDURE: 08/05/2020 PROCEDURE PERFORMED: Esophagogastroduodenoscopy. PREOPERATIVE DIAGNOSIS: Upper GI bleeding with history of esophagitis. POSTOPERATIVE DIAGNOSES: 1. Two linear ulcerations over distal esophagus mucosa appears normal except for hyperemia. 2. No Yael-Reno tear seen. 3. Large hiatus hernia. 4. Retained fragmented tablets in the proximal stomach. 5. Antral gastritis and ulceration measuring approximately 1 cm. The pylorus was wide open on the duodenum, no pathology. DESCRIPTION OF PROCEDURE: The patient was placed on her left lateral position and was given sedation by Anesthesia Department. A Pentax video gastroscope under direct vision passed down the oropharynx past the GE junction into the stomach and subsequently into the descending duodenum. The vocal cords appeared healthy. The patient had 2 ulcerations over distal esophagus. In between the ulcerations, the mucosa appears normal except for hyperemia. The GE junction normal . The patient had a large hiatal hernia. Retroflexion failed to show any pathology in fundus or cardia. The gastric body showed a large amount of fragmented pills. Over the gastric antrum, patient had an ulceration measuring 1 cm. There was also gastritis. Duodenum, no pathology. The stomach was decompressed and the scope was removed. RECOMMENDATIONS: 1. Regular diet. 2. Continue PPI. 3. The patient will be seen by Dr. Mc from tomorrow. Job ID: [id number]
[2020-08-06] MEDS: Escitalopram Oxalate 20 mg Tablet PO SCH (08:48)
[2020-08-06] MEDS: Hydroxychloroquine Sulfate 200 MG TAB PO SCH (08:48)
[2020-08-06] MEDS: Amantadine HCl 100 mg Capsule PO SCH ×2 (08:48→21:38)
[2020-08-06] MEDS: Bupropion 150 MG XL TAB PO SCH (08:48)
[2020-08-06] MEDS: Carbidopa/Levodopa [Rytary Er] 61.25 MG/245 MG Capsule.Er PO SCH ×4 (08:49→21:38)
[2020-08-06] MEDS: Carbidopa/Levodopa [Rytary Er] 36.25 MG/145 MG Capsule.Er PO SCH ×4 (08:49→21:39)
[2020-08-06] MEDS: Pantoprazole 40 MG VIAL IVP SCH ×2 (08:49→21:38)
[2020-08-06] MEDS: D5 1/2 NS w/40 mEq KCL 1,000 ML IV SCH (11:27)
--- NOTE | 2020-08-06 12:10 | PDOC.HOSPP ---
- Subjective Encounter Date: 08/06/20 (f/u hematemesis) Encounter Time: 12:08 Subjective: Pt is without complaints. She is working with speech therapy due to difficulty with thin liquids. She denies any difficulty with swallowing. She has an ulcer on the inside of her lower lip - left side. - Objective Vital Signs & Weight: Vital Signs (12 hours) Temp Pulse Resp BP Pulse Ox 08/06/20 07:24 97.8 F 75 19 115/65 96 08/06/20 03:59 98.7 F 99 21 H 113/56 L 95 Weight Weight 1.735 oz I&O: 08/05/20 08/06/20 08/07/20 06:59 06:59 06:59 Intake Total 2160 1989 Output Total 255 500 Balance 1905 1490 Result Diagrams: 08/06/20 04:17 08/06/20 04:17 Additional Labs: Accuchecks 08/06/20 08/05/20 08/05/20 05:42 21:32 16:21 POC Glucose 81 136 H 72 08/05/20 08/05/20 11:09 06:40 POC Glucose 77 46 L* Hospitalist ROS - Medication Medications: Active Medications Generic Name Dose Route Start Last Admin Trade Name Freq PRN Reason Stop Dose Admin Amantadine HCl 100 mg 08/04/20 21:00 08/06/20 08:48 Amantadine Hcl 100 Mg Capsule PO 100 mg BID RAINA Administration Bupropion HCl 150 mg 08/05/20 09:00 08/06/20 08:48 Bupropion 150 Mg Xl Tab PO 150 mg QAM RAINA Administration Dextrose/Water 25 gm 08/05/20 06:31 08/05/20 06:45 Dextrose 50% Abboject 50 Ml Syringe SLOW IVP 25 gm PRN PRN Administration Hypoglycemia Escitalopram Oxalate 20 mg 08/05/20 09:00 08/06/20 08:48 Escitalopram Oxalate 20 Mg Tablet PO 20 mg DAILY RAINA Administration Hydroxychloroquine Sulfate 200 mg 08/05/20 08:00 08/06/20 08:48 Hydroxychloroquine Sulfate 200 Mg Tab PO 200 mg QAM-WM RAINA Administration Ceftriaxone Sodium 1 gm/ 100 mls @ 200 mls/hr 08/03/20 22:00 08/05/20 21:58 Sodium Chloride IVPB 100 mls Q24HR RAINA Administration Pantoprazole Sodium 40 mg 08/04/20 09:00 08/06/20 08:49 Pantoprazole 40 Mg Vial IVP 40 mg BID RAINA Administration Carbidopa/Levodopa [ 1 each 08/04/20 17:00 08/06/20 08:49 Rytary Er] 36.25 Mg/ PO 1 each 145 Mg Capsule.Er QID RAINA Administration Carbidopa/Levodopa [ 2 each 08/04/20 17:00 08/06/20 08:49 Rytary Er] 61.25 Mg/ PO 2 each 245 Mg Capsule.Er QID RAINA Administration - Exam General Appearance: NAD ENT - other findings: lower lip/inside/left - ulceration Heart: RRR, no murmur Respiratory: CTAB, no wheezes, no rales Gastrointestinal: soft, non-tender, non-distended, normal bowel sounds Extremities: no cyanosis, no edema Extremities - other findings: unchanged - chronic joint changes Psychiatric: normal affect Hosp A/P (1) GI bleed Code(s): K92.2 - GASTROINTESTINAL HEMORRHAGE, UNSPECIFIED Status: Resolved Qualifiers: GI bleed type/associated pathology: unspecified gastrointestinal hemorrhage type Qualified Code(s): K92.2 - Gastrointestinal hemorrhage, unspecified (2) Anemia Code(s): D64.9 - ANEMIA, UNSPECIFIED Status: Acute Qualifiers: Other causes of anemia: acute posthemorrhagic (3) Parkinson disease Code(s): G20 - PARKINSON'S DISEASE Status: Chronic (4) Rheumatoid arthritis Code(s): M06.9 - RHEUMATOID ARTHRITIS, UNSPECIFIED Status: Chronic Qualifiers: Laterality: bilateral (5) Hypoglycemia Code(s): E16.2 - HYPOGLYCEMIA, UNSPECIFIED Status: Resolved (6) Hypokalemia Code(s): E87.6 - HYPOKALEMIA Status: Resolved - Plan GI bleed/hematemesis secondary to esophageal ulceration/gastritis on IV PPI without recurrence - appreciate GI evaluation, await further recommendations Hypoglycemia and hypokalemia - resolved, d/c IVF Tachycardia - resolved UTI - on Rocephin. Unfortunately, do not see a culture. Will d/c after 5 days total of tx. Lip ulcer - topical steroid bid x 3 days Diet recommendations per Speech therapy Parkinsons and RA - continue home meds DVT prophy - scd's, no pharmacologic DVT prophy due to hematemesis GI prophy - on BID IV protonix code status full reviewed plan of care with patient, no questions or further needs at end of eval. Discharge per GI recommendations - anticipate soon.
--- NOTE | 2020-08-06 13:21 | PRG ---
DATE OF SERVICE: 08/06/2020 SUBJECTIVE: Ms. Kaur says she is feeling good today. She is tolerating her diet. There is no nausea or vomiting. She does have some mild chest discomfort when swallowing. OBJECTIVE: VITAL SIGNS: Temperature 98.0, pulse 82, blood pressure 131/63, and 98% oxygen saturation on room air. GENERAL: No acute distress, sitting up in bed comfortably. HEART: Regular rate and rhythm. LUNGS: Clear to auscultation bilaterally. ABDOMEN: Soft, nontender to palpation. EXTREMITIES: No peripheral edema. LABORATORY STUDIES: Hemoglobin stable at 8.7, WBC 6.2, platelets 186. Sodium 137, potassium 3.5, BUN 10, creatinine 0.49, glucose 81. ASSESSMENT AND PLAN: 1. Erosive esophagitis. 2. Large hiatal hernia. 3. Gastric antral ulcer, 1 cm in diameter, all visualized by Dr. Laureano on EGD yesterday. The patient is doing very well here on IV PPI following EGD yesterday. Continuing with acid suppression therapy. She is going to need to be on twice daily PPI on hospital discharge. I did discuss with her that if severe esophagitis is refractory despite maximal medical management, at some point, Surgical referral for consideration of hiatal hernia repair could be entertained, though she would probably not be the best surgical candidate. At this point, she is doing well, having advanced her diet. GI will sign off. Please call back anytime with questions or concerns. Job ID: [id number]
[2020-08-06 14:37] VITALS: BMI 17.6
[2020-08-06] MEDS: cefTRIAXone\\ROCEPHIN 1 GM in Sodium Chloride 0.9% 100 ML IVPB SCH (21:36)
[2020-08-06] MEDS: Triamcinolone 0.1% Dental Paste 5 GM TUBE TOP SCH (23:38)
[2020-08-07 04:44] LABS: #Lymphocytes 1.1 thou/uL (1.20-3.40); #Monocytes 0.6 thou/uL (0.11-0.59); #Neutrophils 4.2 thou/uL (1.40-6.50); %Basophils 0.1 % (0.0-1.0); %Eosinophils 0.2 % (0.0-10.0); %Lymphocytes 19.4 % (21.0-51.0); %Monocytes 9.4 % (0.0-10.0); %Neutrophils 71.1 % (42.0-75.0); Hemoglobin 9.6 g/dL (12.0-16.0); Mean Corpuscular HGB CONC 32.3 g/dL (32.0-36.0); Mean Corpuscular Hemoglobin 28.6 pg (27.0-31.0); Mean Corpuscular Volume 88.8 fL (78.0-98.0); Mean Platelet Volume 9.6 fL (7.4-10.4); Platelet Count 212 thou/uL (130-400); RBC Distribution Width 12.9 % (11.5-14.5); Red Blood Cell (RBC) Count 3.36 mill/uL (4.20-5.40); White Blood Cell (WBC) Count 5.8 thou/uL (4.8-10.8)
[2020-08-07] MEDS: Escitalopram Oxalate 20 mg Tablet PO SCH (09:38)
[2020-08-07] MEDS: Bupropion 150 MG XL TAB PO SCH (09:38)
[2020-08-07] MEDS: Pantoprazole 40 MG VIAL IVP SCH (09:39)
[2020-08-07] MEDS: Amantadine HCl 100 mg Capsule PO SCH (09:39)
[2020-08-07] MEDS: Carbidopa/Levodopa [Rytary Er] 61.25 MG/245 MG Capsule.Er PO SCH ×2 (09:40→13:02)
[2020-08-07] MEDS: Carbidopa/Levodopa [Rytary Er] 36.25 MG/145 MG Capsule.Er PO SCH ×2 (09:40→13:02)
[2020-08-07] MEDS: Triamcinolone 0.1% Dental Paste 5 GM TUBE TOP SCH (09:41)
[2020-08-07] MEDS: Hydroxychloroquine Sulfate 200 MG TAB PO SCH (09:43)
[2020-08-07 12:03] VITALS: BP 128/74; TEMP 98
--- NOTE | 2020-08-08 07:31 | DIS ---
DATE OF ADMISSION: 08/03/2020 DATE OF DISCHARGE: 08/07/2020 DISCHARGE DIAGNOSES: As of the following; 1. Gastrointestinal bleed. 2. Anemia. 3. Parkinson's. 4. Rheumatoid arthritis. 5. Hypoglycemia. 6. Hypokalemia. HOSPITAL COURSE: The patient is a very pleasant 64-year-old female with past medical history of rheumatoid, Parkinson's, who presents to the hospital with a GI bleed. She apparently had hematemesis. At this time, her H and H was 13.4 and 42.8. She was watched and also IV PPI was started on this patient. GI was consulted. The patient underwent an endoscopy, which indicated erosive esophagitis and large hiatal hernia and gastric antral ulcer 1 cm in diameter. At this time, the patient was on IV PPI. Recommended to continue PPI twice a day. The patient actually was on a PPI twice a day and then was asked to change it to once a day given the risks of side effects, which is very appropriate. However, given this patient's large hiatal hernia and she is on steroids for her rheumatoid, recommendation was to start her back on the PPI twice a day. The patient will follow up with GI in the next 2 weeks for further evaluation. The patient's H and H have been stable. She is able to tolerate her diet and she and her family and her are stable for the patient to be discharged home. HOME MEDICATIONS: Will be resumed. Nothing has changed. The patient does have, 1. Protonix prescription. She will resume that twice a day. 2. Iron 65 mg daily. 3. Hydroxychloroquine 200 mg daily. 4. Carbidopa/levodopa one cap q.i.d. 5. Prednisone 5 mg daily. 6. Methotrexate 6 tabs every 7 days. 7. Folic acid 1 mg daily. 8. Escitalopram 20 mg daily. 9. Bupropion 150 mg q.a.m. 10. Vitamin D3 of 25 mcg daily. LABORATORY: Labs are as of the following, PHYSICAL EXAMINATION: VITAL SIGNS: Temperature of 98.0, pulse 81, respirations 16, oxygen saturation 97% on room air, and blood pressure 115/67. GENERAL: She is awake, alert, and oriented x3, does not appear in distress. CV: S1 and S2 present. No murmurs, rubs, or gallops. DISPOSITION: She will be discharged home. She will follow up with Dr. Mc in 1 to 2 weeks. Job ID: [id number]
--- NOTE | 2020-08-09 04:31 | PQF ---
Dear : Gosia Knutson Date 08/09/2020 Please exercise your independent, professional judgment in responding to the clarification form. Clinical indicators are provided on the bottom of this form for your review Can you please further clarify the nutritional status of the patient? Please check appropriate box(es): [ ] Protein Calorie Malnutrition: [ ] Mild [ ] Moderate [ ] Severe [ ] Other Malnutrition (please specify) [ ] Underweight without malnutrition [ ] Cachexia [ ] Other diagnosis, please specify [ ] Unable to determine Physician Signature: Date/Time: For continuity of documentation, please document condition throughout progress notes and discharge summary. Thank You. To be completed by CDI/Coding staff for physician review: Present Clinical Indicators - Signs / Symptoms / Labs Results and Location in Medical Record [ x ] Suggestive of severe malnutrition in the context of chronic ilness Food and nutrition assessment 08/06 [ x ] 43% weight loss in the last year Food and nutrition assessment 08/06 [ x ] Global severe muscle wasting and fat loss Food and nutrition assessment 08/06 [ x ] Underweight adult Food and nutrition assessment 08/06 [ x ] BMI 15.9 Food and nutrition assessment 08/06 [ x ] MST score:3 (2433 lbs weight loss Food and nutrition assessment 08/06 [ x ] Very fragile looking thin build female Consult pg.2 [ x ] Albumin: 08/03=4.6 08/04=3.6 Laboratory 08/03 [ x ] Total Protein: 08/03=7.6 08/04=5.7 Laboratory 08/03 Present Risk Factors Results and Location in Medical Record [ x ] 64 years old H and P pg.1 [ x ] Anemia H and P pg.1 [ x ] Parkinson's disease H and P pg.1 [ x ] Hx of gastrointestinal bleed/ ulcer H and P pg.1 [ x ] Former Smoker ED Notes 08/03 [ x ] Reflux esophagitis Consult 08/04 [ x ] Hiatal Hernia Consult 08/04 Present Treatments Results and Location in Medical Record [ x ] Dietary consult Food and nutrition assessment 08/06 [ x ] GI Consult Dr. Laureano [ x ] IV Fluids MAR [ x ] Recommend Ensure Enlive BID Food and nutrition assessment 08/06 [ x ] Recommend Mighty Shakes TID Food and nutrition assessment 08/06 [ x ] Monitor weight change Food and nutrition assessment 08/06 [ x ] Monitor total protein intake Food and nutrition assessment 08/06 CDS/Manager Nc Signature: Jimmy Prather Phone #: ext [phone] Date 08/09/2020 Moderate Malnutrition (in acute illness) ? Energy Intake: <75% of estimated energy requirement for > 7 days ? Weight Loss: 1-2%/1 week; 5%/ 1 month; 7.5%/3 months ? Other: mild body fat loss; mild muscle mass loss; mild fluid accumulation; Severe Malnutrition (in acute illness) ? Energy Intake: ? 50% of estimated energy requirement for ? 5 days ? Weight Loss: >2%/1 week; >5%/1 month; >7.5%/3 months ? Other: moderate body fat loss; moderate muscle mass loss; moderate- severe fluid accumulation; measurably reduced photoresist printer strength Moderate Malnutrition (in chronic illness) ? Energy Intake: <75% of estimated energy requirement for ?1 month ? Weight Loss: 5%/1 month; 7.5%/3 months; 10%/6 months; 20%/1 year ? Other: mild body fat loss; mild muscle mass loss; mild fluid accumulation Severe Malnutrition (in chronic illness) ? Energy Intake: ?75% of estimated energy requirement for ?1 month ? Weight Loss: >5%/1 month; >7.5%/3 months; >10%/6 months; >20%/1 year ? Other: severe body fat loss; severe muscle mass loss; severe fluid accumulation; measurably reduced photoresist printer strength This is a permanent part of the Medical Record MTDD
== END 2020-08-07 14:35 | disposition home or self-care (01) | DRG 381 ==
LOC: ERS 12:41 → ERHOLD 21:55 → 2NO 08-04 08:52
PROVIDERS: ADMIT Internal Medicine; ATTEND Internal Medicine
PROC: 0DJ08ZZ Inspection of Upper Intestinal Tract, Via Natural or Artificial Opening Endoscopic (ICD-10-PCS; principal; 2020-08-06)
DX: K22.11 Ulcer of esophagus with bleeding (principal); D62 Acute posthemorrhagic anemia; N39.0 Urinary tract infection, site not specified; K25.4 Chronic or unspecified gastric ulcer with hemorrhage; Z20.828 Contact with and (suspected) exposure to other viral communicable diseases; M06.9 Rheumatoid arthritis, unspecified; E87.6 Hypokalemia; G20 Parkinson's disease; K44.9 Diaphragmatic hernia without obstruction or gangrene; E16.2 Hypoglycemia, unspecified; Z88.2 Allergy status to sulfonamides; Z90.49 Acquired absence of other specified parts of digestive tract; Z87.891 Personal history of nicotine dependence; Z90.710 Acquired absence of both cervix and uterus
CPT/HCPCS: 36415; 36416; 74018; 74177; 80048; 80053; 81001; 81003; 81015; 83605; 83690; 84484; 85025; 86850; 86900; 86901; 87086; 87635; 93005; 96374; 96375; C9113; J0696; J2405; J2704; J3480; J3490; Q9967; U0003

== ENCOUNTER 2020-10-24 10:48 | Outpatient (CLI) | payer MEDICARE ==
--- NOTE | 2020-10-24 11:40 | BD ---
EXAM: DEXA bone density examination HISTORY: 65-year-old postmenopausal female for screening COMPARISON: 10/17/2019 FINDINGS: L1--bone mineral density 1.177 g/sq cm; T score 1.7 L2--bone mineral density 0.806 g/sq cm; T score -2.0 L3--bone mineral density 0.774 g/sq cm; T score -2.8 L4--bone mineral density 0.768 g/sq cm; T score -2.7 Total L1-L4--bone mineral density 0.881 g/sq cm; T score -1.5 Right femoral neck--bone mineral density0.430; T score -3.8 Total proximal right femur--bone mineral density 0.520; T score -3.5 IMPRESSION: Osteoporosis. When compared to the prior examination, the bone density in the spine has i ncreased approximately 16%.
== END 2020-10-24 10:49 | disposition home or self-care (01) ==
LOC: BICMAMMO 10:48
PROVIDERS: ATTEND Internal Medicine Rheumatology
DX: M81.0 Age-related osteoporosis without current pathological fracture (principal)
CPT/HCPCS: 77080